=== PATIENT | female | born 1950 | race Caucasian/White ===

== ENCOUNTER → 2020-01-12 09:32 | Outpatient (CLI) | payer MEDICARE, MEDICAID, SELFPAY ==
--- NOTE | ~2020-01-12 | XR_ITS ---
XR knee RT 2V, XR knee LT 2V 01/12/2020 10:44 Indication: Chronic knee pain Procedure: 2 views of each knee Comparison: No prior studies for comparison. Findings: There is mild bilateral osteoarthritis of the knees involving all compartments. Osteopenia. No acute fracture or traumatic malalignment. No significant joint effusion. Impression: 1: Mild bilateral tricompartment osteoarthritis of the knees. Reviewed, dictated and finalized at location A. Impression: 1: Mild bilateral tricompartment osteoarthritis of the knees. Impression: 1: Mild bilateral tricompartment osteoarthritis of the knees.
--- NOTE | ~2020-01-12 | XR_ITS ---
XR lumbar spine 2-3V DATE: 01/12/2020 10:44 INDICATION: Back pain, radiculopathy. TECHNIQUE: Standing AP, lateral, coned lateral lumbosacral views COMPARISON: 08/02/2018 lumbar spine FINDINGS: Again noted are postoperative changes including posterior and interbody fusion at L4-5 and surgical fusion at the right sacroiliac joint. Prominent diffuse osteopenia. There is dextro scoliosis of the lumbar spine. No fracture or spondylolisthesis the left sacroiliac joint is intact. Or bone destruction of the lumb ar spine is evident. The included lower thoracic and lumbar pedicles appear intact. There is extensive calcification of the abdominal aorta, without evidence of aneurysm. IMPRESSION: Posterior and interbody spinal fusion at L5-S1 Surgical fusion at the right sacroiliac joint. Diffuse osteopenia Reviewed, dictated and finalized at location B.
--- NOTE | ~2020-01-12 | XR_ITS ---
XR cervical spine 4-5V DATE: 01/12/2020 10:44 INDICATION: Neck pain TECHNIQUE: Standing Ap, lateral and open mouth, swimmer views COMPARISON: 08/02/2018 cervical spine FINDINGS: There is diffuse osteopenia. There is surgical fusion of the C4-6 vertebral bodies. There is anterior mild subluxation at C6-7. No fracture or dislocation, periosteal reaction or bone destruction. No prevertebral soft tissue swe lling. IMPRESSION: No fracture or dislocation There is mild anterolisthesis at C6-7 Status post surgical fusion at C4-6 Reviewed, dictated and finalized at location B.
== END ==
PROVIDERS: PCP Internal Medicine; Visit Provider Pain Medicine Interventional Pain Medicine
DX: G89.4 Chronic pain syndrome (principal); Z13.89 Encounter for screening for other disorder; Z79.891 Long term (current) use of opiate analgesic; M54.17 Radiculopathy, lumbosacral region; M54.12 Radiculopathy, cervical region; M75.50 Bursitis of unspecified shoulder; S62.102S Fracture of unspecified carpal bone, left wrist, sequela; X58.XXXA Exposure to other specified factors, initial encounter; Z98.1 Arthrodesis status; M85.88 Other specified disorders of bone density and structure, other site
CPT/HCPCS: 72050; 72100; 73560

== ENCOUNTER 2020-10-30 11:04 | Outpatient (CLI) | payer MEDICARE, MEDICAID, SELFPAY ==
--- NOTE | ~2020-10-30 | MR_ITS ---
EXAMINATION: MR lumbar spine wo con EXAM DATE: 10/30/2020 11:50 INDICATION: Low back pain, bilateral leg pain. TECHNIQUE: Multi-sequential, multiplanar MR images of the lumbar spine were obtained without contrast . Sagittal T1, T2, T2 fat saturation images. Axial T2 weighted images. Comparison is made to prior examination from 06/20/2009. FINDINGS: Posterior and interbody fusion L4-5. Mild to moderate disc disease L5-S1 with 2-3 mm retrol isthesis. The vertebral bodies are otherwise aligned. The vertebral body and disc heights are otherwi se well maintained. There are no suspicious marrow signal abnormalities. The conus medullaris termina jasvir at the L1/2 level and has normal signal intensity and morphology. Incidental right renal lesions which are fluid signal intensity, incompletely imaged but likely cysts. Level by level evaluation: T12-L1: Disc does not extend beyond the endplate margin. Facet arthropathy: None. Neural foraminal stenosis: No stenosis. Central canal stenosis: No stenosis. L1-L2: There is a mild diffuse disc bulge. Facet arthropathy: None. Neural foraminal stenosis: No stenosis. Central canal stenosis: No stenosis. L2-L3: There is a mild diffuse disc bulge. Facet arthropathy: Mild. Neural foraminal stenosis: No stenosis. Central canal stenosis: No stenosis. L3-L4: There is a minimal diffuse disc bulge. Facet arthropathy: Mild. Neural foraminal stenosis: No stenosis. Central canal stenosis: No stenosis. L4-L5: This level is fused. Facet arthropathy: Fused. Neural foraminal stenosis: No stenosis. Central canal stenosis: No stenosis. L5-S1: There is a mild to moderate diffuse disc bulge. Facet arthropathy: Mild to moderate. Neural foraminal stenosis: Moderate right, mild left. Central canal stenosis: Mild. Compared to previous examination, L4-5 fusion has been placed. Some progression in L5-S1 spondylosis. IMPRESSION: 1. L5-S1 grade 1 retrolisthesis, moderate right neural foraminal stenosis. 2. Lesser spondylosis above. 3. L4-5 fusion. Reviewed, dictated and finalized at location B. [employer]
== END 2020-10-30 11:05 | disposition home or self-care (01) ==
PROVIDERS: PCP Internal Medicine; Visit Provider Pain Medicine Interventional Pain Medicine
DX: M47.26 Other spondylosis with radiculopathy, lumbar region (principal); Z98.1 Arthrodesis status
CPT/HCPCS: 72148

== ENCOUNTER 2021-03-14 16:09 | Outpatient (CLI) | payer MEDICARE, MEDICAID, SELFPAY ==
--- NOTE | ~2021-03-14 | XR_ITS ---
EXAMINATION: XR lumbar spine min 4V EXAM DATE: 03/14/2021 16:35 INDICATION: Radiculopathy, chronic mid and low back pain. TECHNIQUE: Lumber spine frontal, lateral, bilateral oblique projections. Coned down frontal and lat eral L5-S1 lumbar projections for interpretation. Comparison is made to prior examination from 020. FINDINGS: Vertebral body heights are maintained. There are no acute fractures identified. Post. Inter body fusion L4-5. Surgical devices bridging the right sacroiliac joint. Mild lower thoracic dextrosco liosis. Moderate disc disease at L5-S1 with vacuum disc phenomenon. Moderate mid and lower lumbar fac et arthropathy. L5 laminectomies. Sacrum, sacroiliac joints, sacral arcuate lines are intact. There i s moderate symmetric bilateral hip primary osteoarthritis. Moderate scattered aortic arteriosclerotic disease. IMPRESSION: 1. Moderate lumbar facet arthropathy and L5-S1 disc disease. 2. Surgical changes. Reviewed, dictated and finalized at location A.
== END 2021-03-14 16:10 | disposition home or self-care (01) ==
PROVIDERS: PCP Internal Medicine; Visit Provider Neurological Surgery
DX: M47.26 Other spondylosis with radiculopathy, lumbar region (principal); M96.1 Postlaminectomy syndrome, not elsewhere classified; M51.37 Other intervertebral disc degeneration, lumbosacral region
CPT/HCPCS: 72110

== ENCOUNTER → 2021-03-25 07:53 | Outpatient (CLI) | payer MEDICARE, MEDICAID, SELFPAY ==
[2021-03-25 19:22] LABS: SARS-CoV-2 RNA PCR Negative
== END ==
PROVIDERS: PCP Internal Medicine; Visit Provider Neurological Surgery
DX: M46.1 Sacroiliitis, not elsewhere classified (principal); Z20.822 Contact with and (suspected) exposure to COVID-19
CPT/HCPCS: C9803; U0003; U0005

== ENCOUNTER 2021-03-28 09:34 | Outpatient (CLI) | payer MEDICARE, MEDICAID, SELFPAY ==
[2021-03-22 09:18] VITALS: BMI 34.7
[2021-03-28] VITALS (10 sets, daily range): BP systolic 136–182; BP diastolic 31–77; PULSE 63–73; RESP 14–20; O2SAT 91–100
--- NOTE | ~2021-03-28 | XR_ITS ---
EXAMINATION: XR myelogram spine lumbosacral DATE: 03/28/2021 11:48 INDICATION: Postlaminectomy syndrome TECHNIQUE: Informed consent was obtained from the patient. Risks and benefits including bleeding, i nfection and nerve root injury were discussed with the patient. The patient agreed to proceed. Time out procedure was performed. Mat Cutter radiograph was obtained. An entry site was chosen at the L2-L3 level. A midline interspinous process approach was used. Standard sterile prep was done with Betadi ne. Entry site was infiltrated with 3 cc 1% lidocaine. A 3.5 22G spinal needle was then inserted i nto the spinal canal. Intrathecal position was confirmed by spontaneous reflux of clear colorless CSF fluid. 16 mL Omnipaque 180 were then injected into the thecal sac with intermittent fluoroscopy con firming intrathecal administration. Frontal, lateral and oblique fluoroscopic images were then acquired. The patient was then transferre d to CT scan for spiral CT of the lumbar spine. Following this patient was transferred to recovery f or 4 hours of observation. There are no immediate complications. A total of 15 fluoroscopic images were obtained. Fluoroscopy exposure time was 0.8 minutes. FINDINGS: Real-time fluoroscopy demonstrates the needle at the L2-L3 level. Postoperative change of p rior midline anterior and posterior spinal fusion at L4-L5 with bilateral vertical christiano and pedicle sc rew fixation and interbody bone graft cage. Posterior disc bulges at L1-L2 and L2-L3 resulting in mil d central canal stenosis and smaller disc bulge with minimal central canal stenosis at T12-L1. Partia lly visualized screw fixation across the right sacral iliac joint. IMPRESSION: 1. Successful fluoro-guided lumbar puncture and intrathecal contrast administration for subsequent CT myelogram which will be dictated separately. 2. Disc bulges at T12-L1 through L2-L3 with minimal to mild canal stenosis. 3. Combined noncemented anterior and posterior spinal fusion at L5-S1 and partially visualized screw fixation across the right sacral iliac joint. Reviewed, dictated and finalized at location A. IMPRESSION: 1. Successful fluoro-guided lumbar puncture and intrathecal contrast administra tion for subsequent CT myelogram which will be dictated separately. 2. Disc bulges at T12-L1 through L2-L3 with minimal to mild canal stenosis. 3. Combined noncemented anterior and posterior spinal fusion at L5-S1 and parti ally visualized screw fixation across the right sacral iliac joint.
--- NOTE | ~2021-03-28 | CT_ITS ---
EXAMINATION: CT lumbar spine w con DATE: 03/28/2021 11:42 INDICATION: Postlaminectomy syndrome TECHNIQUE: Computed tomography (CT) of the lumbar spine was performed with 16 mL with 100 mL Omnipaqu e-180 intrathecal contrast but without intravenous contrast. Details of the intrathecal contrast inje ction been dictated separately. The dose-length product was 812.46 mGy-cm. COMPARISON: Lumbar spine MR dated 10/30/2020 FINDINGS: Postoperative change of prior combined instrumented anterior and posterior spinal fusion at L4-L5 wit h bilateral vertical christiano and pedicle screw fixation and interbody bone graft cages. A pair of fixatio n screws are also seen spanning the right sacroiliac joint on the apprentice painter hand topogram. Alignment is normal . Unfused vertebral body heights are normal. No fractures. No pars interarticularis defects. Mild dis c height loss with vacuum phenomena at L5-S1. Remaining unfused disc heights are normal. A couple low -attenuation right renal cysts the largest measuring 3.6 cm. The following disc levels are specifical ly discussed: T11-T12: Disc is minimally bulging. There is mild bilateral facet joint osteoarthritis. There is no n eural foraminal stenosis. There is no central canal stenosis. T12-L1: Disc is minimally bulging. There is mild bilateral facet joint osteoarthritis. There is no ne ural foraminal stenosis. There is no central canal stenosis. L1-L2: Disc is minimally bulging with superimposed small central disc protrusion versus extrusion. Th ere is minimal bilateral facet joint osteoarthritis. There is no neural foraminal stenosis. There is mild central canal stenosis. L2-L3: Disc is minimally bulging with superimposed small central to right paracentral disc protrusion versus extrusion. There is minimal bilateral facet joint osteoarthritis. There is no neural foramina l stenosis. There is mild central canal stenosis. L3-L4: The disc does not extend beyond the endplate margin. There is minimal bilateral facet joint os teoarthritis. There is no neural foraminal stenosis. There is no central canal stenosis. L4-L5: Disc space is fused. There is also fusion across the facet joints with bilateral vertical christiano and pedicle screw fixation. There is no neural foraminal stenosis. There is mild central canal stenos is resulting from mild hypertrophic change along the left facet joint. L5-S1: Disc is mildly bulging. There is mild left and moderate right facet joint osteoarthritis. Ther e is mild to moderate bilateral neural foraminal stenosis. There is no central canal stenosis. IMPRESSION: 1. Mild lumbar spondylosis with combined instrumented anterior and posterior spinal fusion at L4-L5. Reviewed, dictated and finalized at location A. IMPRESSION: 1. Mild lumbar spondylosis with combined instrumented anterior and posterior sp inal fusion at L4-L5.
[2021-03-28 10:28] LABS: Mean Platelet Volume 8.9 fl (7.4-10.4); Platelet Count Result 236 k/mm3 (150-375)
[2021-03-28 10:43] LABS: Prothrombin Time 13.3 Seconds (11.1-14.7)
== END 2021-03-28 13:45 | disposition home or self-care (01) ==
PROVIDERS: Radiology Diagnostic Radiology; PCP Internal Medicine; Visit Provider Neurological Surgery
DX: M96.1 Postlaminectomy syndrome, not elsewhere classified (principal); M47.26 Other spondylosis with radiculopathy, lumbar region; M46.1 Sacroiliitis, not elsewhere classified; Z51.81 Encounter for therapeutic drug level monitoring; Z79.899 Other long term (current) drug therapy
CPT/HCPCS: 36415; 62304; 72132; 85049; 85610; Q9965

== ENCOUNTER 2021-06-22 22:13 | Emergency (ER) | payer MEDICARE, MEDICAID, SELFPAY ==
--- NOTE | ~2021-06-22 | XR_ITS ---
XR tibia fibula LT 2V DATE: 06/22/2021 22:56 INDICATION: Dog injury. Evaluate for retained foreign body TECHNIQUE: AP and lateral views of the lower leg and ankle COMPARISON: None FINDINGS: Diffuse osteopenia. No fracture or dislocation, periosteal reaction or bone destruction of the tibia or fibula. Normal alignment of the knee and ankle joints. No radiopaque soft tissue foreign body. IMPRESSION: No radiopaque soft tissue foreign body Diffuse osteopenia Reviewed, dictated and finalized at location A.
--- NOTE | ~2021-06-22 | XR_ITS ---
XR hand RT 2V DATE: 06/22/2021 22:56 INDICATION: Dog bite. Evaluate for possible foreign body TECHNIQUE: 3 views of right hand COMPARISON: None FINDINGS: Diffuse osteopenia. There is soft tissue swelling of the distal second digit. There is a mildly comminuted fracture of th e base, metaphysis and proximal shaft of the distal phalanx, with minimal displacement or angulation. No radiopaque foreign body is evident. No other fracture or dislocation. IMPRESSION: Comminuted fractures of distal phalanx of second digit Reviewed, dictated and finalized at location A.
[2021-06-22 22:10] VITALS: BP 175/54; PULSE 78; RESP 18; TEMP 37.1; O2SAT 95
--- NOTE | 2021-06-22 22:35 | ED.ANIMALBIT ---
HPI - Animal Bite General Chief Complaint: Animal Bite Stated Complaint: evulsion to finger - dog bites Time Seen by Provider: 06/22/21 22:22 History of Present Illness HPI narrative: Patient presents with a dog bite. Shorts there is a stray dog in her backyard she reached down to touch it and bit her hand. Reports pain to the area is achy, constant, worse with using her hands there is no radiation. Reports she is right-hand dominant. She does not know where the dog came from her who thought belongs to. Related Data Home Medications Medication Instructions Recorded Confirmed albuterol 180 mcg INHALATION TID 03/22/21 03/22/21 amlodipine 10 mg PO DAILY 03/22/21 03/22/21 aspirin 81 mg PO DAILY 03/22/21 03/22/21 bupropion HCl [Wellbutrin] 100 mg PO BID 03/22/21 03/22/21 clopidogrel [Plavix] 75 mg PO DAILY 03/22/21 03/22/21 cyclobenzaprine [Flexeril] 10 mg PO TID 03/22/21 03/22/21 fluoxetine [Prozac] 40 mg PO DAILY 03/22/21 03/22/21 hydrocodone-acetaminophen 1 tablet PO Q6-8H PRN 03/22/21 03/22/21 melatonin 10 mg PO HS 03/22/21 03/22/21 metoprolol tartrate 25 mg PO DAILY 03/22/21 03/22/21 multivitamin 1 tablet PO DAILY 03/22/21 03/22/21 omeprazole 20 mg PO DAILY 03/22/21 03/22/21 pravastatin 40 mg PO HS 03/22/21 03/22/21 vit C,F-Zs-gygdd-lutein-zeaxan 1 tablet PO DAILY 03/22/21 03/22/21 [PreserVision AREDS-2] Allergies Allergy/AdvReac Type Severity Reaction Status Date / Time naproxen Allergy Severe BLISTERS Verified 06/22/21 22:32 celecoxib Allergy Unknown Gastrointestinal Verified 06/22/21 22:32 Upset latex Allergy Unknown Rash Verified 06/22/21 22:32 NSAIDS (Non-Steroidal Allergy Unknown Gastrointestinal Verified 06/22/21 22:32 Anti-Inflamma Upset Penicillins Allergy Unknown Rash Verified 06/22/21 22:32 Sulfa (Sulfonamide Allergy Unknown Redness of Verified 06/22/21 22:32 Antibiotics) Skin Review of Systems Review of Systems: CONSTITUTIONAL: Denies fever, chills, or sweats. EYES: Denies visual changes, redness, or discharge. ENT: Denies rhinorrhea, congestion, sore throat, or otalgia. CARDIOVASCULAR: Denies chest pain, palpitations, or edema. RESPIRATORY: Denies cough or dyspnea. GASTROINTESTINAL: Denies abdominal pain, nausea, vomiting, or diarrhea. GENITOURINARY: Denies dysuria or hematuria. SKIN: Denies rash or itching. MUSCULOSKELETAL: Denies back pain, or myalgia. NEUROLOGIC: Denies headache, numbness, dizziness, or weakness. PSYCHIATRIC: Denies anxiety or depression. All systems reviewed & are unremarkable except as noted in HPI and below PMFSH Family History Family History Father Hypertension Family history of malignant neoplasm of esophagus Mother Hypertension Family history of throat cancer Sibling Family history of diabetes mellitus in first degree relative Other Family history of chronic obstructive pulmonary disease Social History Social History Smoking status: Current every day smoker Alcohol intake: never Exam Narrative: GENERAL: Well-appearing, well-nourished, and in no acute distress. HEAD: Normocephalic, atraumatic. EYES: PERRLA and EOMI. ENT: Nares clear, no rhinorrhea or epistaxis. Mucous membranes moist. NECK: Supple. No masses. No JVD EXTREMITIES: Maceration to the second digit on the right hand distal tip. Sensation intact to light touch is good cap refill. Flexion intact at the DIP joint SKIN: Warm, dry, no rash. NEURO: No focal deficits. Alert and oriented x3. PSYCH: Normal mood and affect. Course Consultations Consultation #1: Case discussed with Dr. Felton who will follow up with patient this week Date: 06/22/21 Time: 23:00 Vital Signs Vital signs: Vital Signs Temperature 37.1 C 06/22/21 22:10 Pulse Rate 78 06/22/21 22:10 Respiratory Rate 18 06/22/21 22:10 Blood Pressure 175/54 H 06/22/21 22:10 Pulse Oximetry 95
[2021-06-22 22:51] VITALS: BP 145/54
[2021-06-22] MEDS: HYDROcodone/acetaminophen (*CRX) 5-325 MG TABLET 1 TAB PO (23:17)
[2021-06-22] MEDS: TETANUS,DIPHTHERIA,AC PERTUSSIS ADULT (0.5 ML) BOOSTRIX IM (23:17)
[2021-06-23 00:32] VITALS: BP 149/70; PULSE 83; RESP 16; O2SAT 96
== END 2021-06-23 00:33 | disposition home or self-care (01) ==
PROVIDERS: Emergency Provider Emergency Medicine; PCP Internal Medicine
DX: S62.630A Displaced fracture of distal phalanx of right index finger, initial encounter for closed fracture (principal); Z23 Encounter for immunization; F17.200 Nicotine dependence, unspecified, uncomplicated; Z79.82 Long term (current) use of aspirin; Z79.02 Long term (current) use of antithrombotics/antiplatelets; M85.841 Other specified disorders of bone density and structure, right hand; M85.862 Other specified disorders of bone density and structure, left lower leg; W54.0XXA Bitten by dog, initial encounter
CPT/HCPCS: 73120; 73590; 90471; 90715; 99284; A9270

== ENCOUNTER 2021-07-29 12:07 | Inpatient (IN) | payer MEDICARE, MEDICAID, SELFPAY ==
[2021-07-29] VITALS (7 sets, daily range): BP systolic 109–149; BP diastolic 53–78; PULSE 64–90; RESP 15–18; TEMP 37.3–37.6; O2SAT 90–98
--- NOTE | ~2021-07-29 | XR_ITS ---
EXAMINATION: XR chest 1V portable EXAM DATE: 07/29/2021 13:27 INDICATION: Chest pain. TECHNIQUE: Portable AP frontal chest x-ray was obtained. Comparison is made to prior examination from 10/02/2018. FINDINGS: There is cardiomegaly. There is aortic arteriosclerosis. No confluent consolidation, pneumo thorax or pleural effusion suspected. There are bony degenerative changes. IMPRESSION: Cardiomegaly Reviewed, dictated and finalized at location B. IMPRESSION: Cardiomegaly
--- NOTE | ~2021-07-29 | CT_ITS ---
EXAMINATION: CTA chest PE protocol EXAM DATE: 07/29/2021 15:25 INDICATION: Shortness of breath . Cough. COVID diagnosed Sunday. TECHNIQUE: Spiral CTA of the chest (pulmonary arteries) was performed with 100 cc Omnipaque 350 intr avenous contrast injection. Images were acquired during the pulmonary arterial phase. Coronal maxi mum intensity projection 3D-reconstructions were created by the technologist on dedicated workstation . Axial, coronal and sagittal reformatted images were reviewed. The dose-length product (DLP) for t his examination was 475.54 mGy-cm. The exposure was tailored according to patient size (auto mA exp osure control), and iterative reconstruction (ASIR) was used as additional dose reduction technique. There is no prior study for comparison. FINDINGS: Pulmonary arteries are well opacified and without intraluminal filling defects. No thora cic aortic dissection. There is mild to moderate emphysema. Some regions of interlobular septal thic kening and groundglass opacity, could be early stages of COVID pneumonia. Other possibilities inclu de influenza, pulmonary edema or hemorrhage. Some chronic processes that can have this appearance inc lude cryptogenic organizing pneumonia, desquamative interstitial pneumonia, nonspecific interstitial pneumonia, drug toxicity, connective tissue disease. There are no pleural or pericardial effusions. Tracheobronchial tree is patent. There is no media stinal, hilar or axillary lymphadenopathy. There is no pneumothorax. Mild cardiomegaly. There is moderate coronary arterial calcification, arterial sclerosis. There is small sliding gastroesophagea l hiatal hernia. Upper abdomen is unremarkable. There is thoracic spondylosis without osteoblastic or osteolytic lesions identified. IMPRESSION: 1. Some scattered regions of groundglass opacity and interlobular septal thickening, could be acute stage COVID pneumonia. NSIP pattern interstitial lung disease, some other possibilities. 2. Mild to moderate emphysema. 3. No pulmonary emboli. 4. Small hiatal hernia. Reviewed, dictated and finalized at location B. IMPRESSION: 1. Some scattered regions of groundglass opacity and interlobular septal thick ening, could be acute stage COVID pneumonia. NSIP pattern interstitial lung dis ease, some other possibilities. 2. Mild to moderate emphysema. 3. No pulmonary emboli. 4. Small hiatal hernia.
--- NOTE | 2021-07-29 12:57 | ED.SOB ---
HPI - SOB/Dyspnea General Chief Complaint: Upper Respiratory Infection Stated Complaint: covid +, sob Time Seen by Provider: 07/29/21 12:35 Source: patient Mode of arrival: ambulatory Limitations: no limitations History of Present Illness HPI Narrative: Patient is a 70-year-old female complaining of shortness of breath, cough, body aches, chills and fever x1 week. Patient states that she was diagnosed with Covid 5 days ago. Patient denies any chest pain, abdominal pain, nausea, vomiting, diarrhea or urinary symptoms. Related Data Home Medications Medication Instructions Recorded Confirmed albuterol 180 mcg INHALATION TID 03/22/21 03/22/21 amlodipine 10 mg PO DAILY 03/22/21 03/22/21 aspirin 81 mg PO DAILY 03/22/21 03/22/21 bupropion HCl [Wellbutrin] 100 mg PO BID 03/22/21 03/22/21 clopidogrel [Plavix] 75 mg PO DAILY 03/22/21 03/22/21 cyclobenzaprine [Flexeril] 10 mg PO TID 03/22/21 03/22/21 fluoxetine [Prozac] 40 mg PO DAILY 03/22/21 03/22/21 hydrocodone-acetaminophen 1 tablet PO Q6-8H PRN 03/22/21 03/22/21 melatonin 10 mg PO HS 03/22/21 03/22/21 metoprolol tartrate 25 mg PO DAILY 03/22/21 03/22/21 multivitamin 1 tablet PO DAILY 03/22/21 03/22/21 omeprazole 20 mg PO DAILY 03/22/21 03/22/21 pravastatin 40 mg PO HS 03/22/21 03/22/21 vit C,G-Mv-fcbnf-lutein-zeaxan 1 tablet PO DAILY 03/22/21 03/22/21 [PreserVision AREDS-2] Allergies Allergy/AdvReac Type Severity Reaction Status Date / Time naproxen Allergy Severe BLISTERS Verified 07/29/21 12:29 celecoxib Allergy Unknown Gastrointestinal Verified 07/29/21 12:29 Upset latex Allergy Unknown Rash Verified 07/29/21 12:29 NSAIDS (Non-Steroidal Allergy Unknown Gastrointestinal Verified 07/29/21 12:29 Anti-Inflamma Upset Penicillins Allergy Unknown Rash Verified 07/29/21 12:29 Sulfa (Sulfonamide Allergy Unknown Redness of Verified 07/29/21 12:29 Antibiotics) Skin Review of Systems Review of Systems: All systems reviewed & are unremarkable except as noted in HPI and below Constitutional: Constitutional: Denies excessive sweating, Denies fatigue, Denies headache(s), Denies lethargy, Denies malaise, Denies weakness and Denies weight loss Eyes: Eyes: Denies blurry vision, Denies change in vision and Denies loss of vision ENT: Denies dizziness, Denies ear discharge, Denies headache(s), Denies lip swelling, Denies epistaxis, Denies nasal congestion, Denies neck pain, Denies throat swelling and Denies tongue swelling Cardiovascular: Cardiovascular: Denies chest pain, Denies chest pain at rest, Denies chest pain with activity, Denies diaphoresis, Denies rapid heart rate, Denies edema, Denies irregular heart rhythm, Denies lightheadedness and Denies palpitations Respiratory: Respiratory: Denies chest congestion and Denies hemoptysis Gastrointestinal: Gastrointestinal: Denies abdominal pain, Denies melena, Denies hematochezia, Denies diarrhea, Denies nausea, Denies vomiting and Denies hematemesis Musculoskeletal: Musculoskeletal: Denies abnormal gait, Denies deformity, Denies joint swelling, Denies limited range of motion, Denies neck pain and Denies numbness Neurologic: Denies Abnormal speech present, Denies abnormal gait, Denies confusion, Denies dizziness, Denies headache(s), Denies focal weakness, Denies loss of vision, Denies numbness, Denies Other visual disturbances, Denies Sensory deficit (Neuro) and Denies weakness Psychiatric: Psychiatric: Denies confusion, Denies depression, Denies auditory hallucinations, Denies homicidal ideation and Denies suicidal ideation Endocrine: Endocrine: Denies cold intolerance, Denies excessive sweating, Denies fatigue, Denies heat intolerance and Denies palpitations Hematologic/Lymphatic: Hematologic/Lymphatic: Denies easy bleeding and Denies easy bruising Allergic/Immunologic: Allergic/Immunologic: Denies lip swelling, Denies throat swelling and Denies tongue swelling [facility] Family History Family History (Reviewed 07/29/21 @ 12:59 by Katina
--- NOTE | 2021-07-29 13:01 | ECG_ITS ---
Measurements Intervals [place] Rate: 64 P: 56 PA: 180 QRS: 34 QRSD: 129 T: 47 QT: 423 QTc: 439 Interpretive Statements SINUS RHYTHM RIGHT BUNDLE BRANCH BLOCK BASELINE ARTIFACT- I, II, III, AVR, AVL, AVF, V5-V6 ABNORMAL ECG Electronically Signed On 07-30-2021 14:07:31 CDT by Yoan Vasquez D.O.
[2021-07-29 13:20] LABS: Carboxyhemoglobin 0.3 % THb (0-2.0); Device ROOM AIR; Fractional Inspired Oxygen 21 %; HCO3 ABG 22.2 mEq/l (22.0-26.0); Methemoglobin ABG 0.1 %THb (0-1.5); Modified Allen's Test Pass; Oxygen Content ABG 15.6 %vol (16.0-22.0); Oxygen Saturation ABG 92.6 % (95.0-100.0); PCO2 ABG 32.2 mmHg (35.0-45.0); PO2 ABG 60.2 mmHg (80.0-100.0); PO2 FiO2 Ratio Arterial Blood 2.87 %; Reduced Hemoglobin 8.6 %THb (0-5.0); Site Drawn LEFT RADIAL; Total Hemoglobin 12.2 g/dL (12.0-18.0); pH ABG 7.456 (7.350-7.450)
[2021-07-29] MEDS: DEXAMETHASONE SOD PHOS INJ 4 MG/ML VIAL 10 MG IV PUSH (13:32)
[2021-07-29 13:43] LABS: Basophils Percent Auto 0.2 % (0.2-1.2); Eosinophils Percent Auto 0.4 % (0-4.4); Hematocrit 34.2 % (37.0-47.0); Hemoglobin 11.4 g/dL (12.0-15.0); Immature Granulocyte Absolute 0.02 K/mm3 (0.00-0.031); Immature Granulocyte Percent A 0.4 % (0-0.5); Lymphocytes Absolute Auto 0.57 K/mm3 (0.9-3.2); Lymphocytes Percent Auto 11.5 % (18.3-44.2); Mean Corpuscular HGB Conc 33.3 g/dl (32-36); Mean Corpuscular Hemoglobin 29.5 pg (26-34); Mean Corpuscular Volume 88.4 fl (80-100); Mean Platelet Volume 9.5 fl (7.4-10.4); Monocytes Absolute Auto 0.3 K/mm3 (0.1-0.6); Monocytes Percent Auto 6.5 % (2.6-8.5); Platelet Count Result 154 k/mm3 (150-375); Red Blood Count 3.87 M/mm3 (4.2-5.4); Red Cell Distribution Width 13.2 % (11.5-14.5); White Blood Count 4.9 K/mm3 (4.5-10.0)
[2021-07-29 13:52] LABS: Lactic Acid Reflex 1.4 mmol/L (0.7-2.1)
[2021-07-29 13:54] LABS: INR 0.9
[2021-07-29 13:55] LABS: Partial Thromboplastin Time 29.2 SECONDS (22.3-36.8)
[2021-07-29 13:59] LABS: Alanine Aminotransferase 54 U/L (4-35); Alkaline Phosphatase 99 U/L (38-126); Anion Gap 10 mmol/L (8-16); Aspartate Amino Transferase 29 U/L (14-36); Bilirubin,Total 0.1 mg/dL (0.2-1.3); Blood Urea Nitrogen 12 mg/dL (7-17); Calcium 8.9 mg/dL (8.4-10.2); Carbon Dioxide 24 mmol/L (22-30); Chloride 100 mmol/L (98-107); Estimated CRCL calculation 68 ml/min; Estimated Glomerular Filt Rate > 60; Glucose 90 mg/dL (65-110); Potassium 3.4 mmol/L (3.4-5.0); Sodium 134 mmol/L (137-145)
[2021-07-29 14:09] LABS: NT Pro B Type Natriuretic Pept 248 pg/mL (5-100)
[2021-07-29 14:28] LABS: Troponin I < 0.012 ng/mL (0.000-0.034)
--- NOTE | 2021-07-29 18:22 | PC.NURSE ---
Pt O2 was 91, Per Dr. Hernandez place pt 2L. Pt is at 100%
--- NOTE | 2021-07-29 21:25 | ADMGEN ---
This patient, Aline Ordaz, was admitted to 3 [facility] Surg Room 301-01. Patient/family oriented to hospital policies and general routines including ID bracelet, bed and alarms, visiting hours, pain management, procedures, bathroom and other care routines, personal items, smoking policy, room service/diet, and visiting hours. Information on how to activate the Rapid Response Team has been discussed. Patient/Family are encouraged to report perceived risks to care and to ask questions if they do not understand what they are told or what they should do.
[2021-07-30] VITALS (8 sets, daily range): BP systolic 106–148; BP diastolic 48–65; PULSE 64–92; RESP 14–22; TEMP 36.4–37.5; O2SAT 96–98
--- NOTE | 2021-07-30 00:10 | PM.IMHP ---
H&P: HPI History of Present Illness Date/Time: 07/29/21 0739 this is a 70-year-old female patient who came to the emergency room due to shortness of breath, body aches, fever and chills. The patient stated that this is been going on for over a week. She was diagnosed with COVID at her urgent care 5 days ago. She stated [facility]. The patient stated that she had been exposed and had been around other relatives who tested positive. The patient stated that she should be getting better by now but instead she got worse. Patient's oxygen level was 90% on room air and 89 when she ambulated. The patient was placed on oxygen at 2 L per nasal cannula started on Decadron. The patient is talking in full sentences and appears to be comfortable. The patient stated that she was fully vaccinated for COVID-19. The patient typically uses an inhaler at home. She stated she does not have any previous lung disease but had been wheezing and was given an inhaler by her primary care doctor. Her H&H was 11.4 in 34.2. ABGs pH 7.456, CO2 32.2, PO2 60.2. Chest x-ray was read as cardiomegaly. Chest CTA was read as the following.. Some scattered regions of groundglass opacity and interlobular septal thickening, could be acute stage COVID pneumonia. NSIP pattern interstitial lung disease, some other possibilities. 2. Mild to moderate emphysema. 3. No pulmonary emboli. 4. Small hiatal hernia. The patient stated that she is a full code but does not want to live in a vegetative state on ventilator. She also stated that she did not want to take remdesivir at this point but will take the Decadron. The patient is being admitted to observation status on the date of service of 07/29/2021 Chief Complaint: Shortness of breath Review of Systems Review of Systems: All systems reviewed & are unremarkable except as noted in HPI and below Constitutional: Constitutional: Reports as per HPI and Reports no additional constitutional complaints Eyes: Eyes: Reports as per HPI and Reports no additional eye complaints ENT: Reports system reviewed and no additional complaints, except as documented and Reports Normal hearing present Cardiovascular: Cardiovascular: Reports no additional cardiovascular complaints Respiratory: Respiratory: Reports no additional respiratory complaints and Reports no additional respiratory complaints Gastrointestinal: Gastrointestinal: Reports as per HPI and Reports no additional gastrointestinal complaints Musculoskeletal: Musculoskeletal: Reports no additional musculoskeletal complaints Integumentary/Breasts: Skin/Breast: Reports system reviewed and no additional complaints, except as docu and Reports as per HPI Neurologic: Reports system reviewed and no additional complaints, except as documented, Reports as per HPI and Reports Normal hearing present Psychiatric: Psychiatric: Reports no additional psychiatric complaints and Reports as per HPI Endocrine: Endocrine: Reports no additional endocrine complaints Hematologic/Lymphatic: Hematologic/Lymphatic: Reports no additional hematologic/lymphatic complaints Allergic/Immunologic: Allergic/Immunologic: Reports no additional allergic/immunologic complaints [facility] Past Medical History Medical History (Updated 07/30/21 @ 00:30 by Tammy Juárez NP) CAD (coronary artery disease) Depression with anxiety History of aortic valve disease History of carotid artery disease History of female genital cancer History of genital prolapse History of mitral valve prolapse in adulthood History of skin cancer HTN (hypertension) with goal to be determined Hyperlipidemia Macular degeneration Surgical History Surgical History (Updated 07/30/21 @ 00:21 by Tammy Juárez NP) H/O repair of rotator cuff Bilateral History of back surgery The cage to the lower back 3 times History of breast biopsy Fibrocystic breast History of carotid endarterectomy On the right History of catarac
[2021-07-30] MEDS: PRAVASTATIN SODIUM 20 MG TABLET 40 MG PO ×2 (01:40→22:11)
[2021-07-30] MEDS: MELATONIN 5 MG TABLET 10 MG PO ×2 (01:41→22:12)
[2021-07-30] MEDS: oxyCODONE/ACETAMINOPHEN (*CRX) 5-325 MG TABLET 1 TABLET PO ×4 (01:41→17:31)
[2021-07-30] MEDS: CYCLOBENZAPRINE HCL 10 MG TABLET PO ×3 (08:50→17:31)
[2021-07-30] MEDS: OPTI-GEN TAB 1 TABLET PO (08:50)
[2021-07-30] MEDS: ENOXAPARIN 40 MG/0.4 ML SYRINGE SUB-Q (08:50)
[2021-07-30] MEDS: PANTOPRAZOLE 40 MG TABLET PO (08:51)
[2021-07-30] MEDS: MULTIVITAMINS THERAPEUTIC TAB (*BKC) 1 TABLET PO (08:51)
[2021-07-30] MEDS: FLUoxetine HCL 20 MG CAPSULE 40 MG PO (08:51)
[2021-07-30] MEDS: CLOPIDOGREL BISULFATE 75 MG TABLET PO (08:51)
[2021-07-30] MEDS: buPROPion HCL 100 MG TABLET PO ×2 (08:51→17:32)
--- NOTE | 2021-07-30 10:20 | PM.IMPN ---
Progress Note: A&P Assessment and Plan (1) Pneumonia due to COVID-19 virus: Code(s): U07.1 - COVID-19; J12.82 - Pneumonia due to coronavirus disease 2019 Status: Acute Assessment and Plan: Patient is currently on oxygen at 2 L per nasal cannula. The patient dropped her oxygen level to 89% when she was up ambulating. I encouraged the patient to self prone as often as possible. She is unable to prone at least lay on her side sensitive her back. Patient has been fully vaccinated. She is agreeable to taking the Decadron but will not take they REMdesivir. Continue with albuterol inhaler (2) Depression with anxiety: Code(s): F41.8 - Other specified anxiety disorders Status: Chronic Assessment and Plan: Continue with Wellbutrin and Prozac (3) Hyperlipidemia: Code(s): E78.5 - Hyperlipidemia, unspecified Status: Chronic Assessment and Plan: Continue with pravastatin (4) CAD (coronary artery disease): Code(s): I25.10 - Atherosclerotic heart disease of [place] coronary artery without angina pectoris Status: Chronic Assessment and Plan: Continue with aspirin and metoprolol. The patient stated that she has some coronary blockages but did not receive a stent. Continue with Plavix (5) Macular degeneration: Code(s): H35.30 - Unspecified macular degeneration Status: Chronic Assessment and Plan: Continue with home medications. She is on PreserVision (6) HTN (hypertension) with goal to be determined: Code(s): I10 - Essential (primary) hypertension Status: Chronic Assessment and Plan: Continue with metoprolol and Norvasc. (7) Acute respiratory failure with hypoxia: Code(s): J96.01 - Acute respiratory failure with hypoxia Status: Acute Additional Plan 07/30/21 COVID + 5 days ago in outpt setting (fully vaccinated) pt now hypoxic start dexamethasone add azithromycin pt declined remdesivir but with the understanding this medicine is most effective early has changed her mind Subjective Date/time seen: 07/30/21 10:20 long discussion regarding remdesivir. It works better if taken early, we do not know if she needs it but we have seen good results in pts it is initiated early for. She understands it has risks all drugs have risks and this is no different but considering she has the vaccine and is still requiring hospitalization it is unclear if she will have a good recovery with or without all available medical therapies; Pt agrees to treatment Exam Narrative: GEN: NAD, AAOx3, cooperative HEENT: NCAT, MMM, EOMI Neck: no JVD Heart: S1S2 RRR Lungs: on NC symmetric rise no use of accessory muscles Abd: soft, NT, ND Ext: moves all, no cyanosis, no clubbing, no edema Neuro: CN intact no focal neurological deficits Psych: mood and affect congruent, judgement intact Objective Data Vital Signs Vital Signs: Vital Signs - 24 hr 07/29/21 12:17 07/29/21 14:00 07/29/21 16:06 Temperature 99.1 F Pulse Rate 64 89 75 Respiratory Rate 18 15 15 Blood Pressure 109/62 135/57 L 136/53 L Pulse Oximetry 92 90 90 07/29/21 18:22 07/29/21 19:26 07/29/21 22:00 Temperature 99.7 F H Pulse Rate 89 89 90 Respiratory Rate 18 18 18 Blood Pressure 136/78 149/71 H 112/58 L Pulse Oximetry 97 97 98 07/29/21 22:12 07/30/21 06:00 07/30/21 08:58 Temperature 99.5 F Pulse Rate 92 64 Respiratory Rate 18 Blood Pressure 106/48 L Pulse Oximetry 91 96 Intake/Output Intake/Output: Intake & Output 07/27/21 07/28/21 07/29/21 07/30/21 23:59 23:59 23:59 23:59 Intake Total 420 Balance 420 Meds/Results Medications: Active Medications Generic Name Dose Route Start Last Admin Trade Name Freq PRN Reason Stop Dose Admin Albuterol 2 puff 07/30/21 08:00 Albuterol Sulfate (*Sp) Aerosol 1 Puff INHALATION TIDRT [facility] Amlodipine Besylate 10 mg 07/30/21 09:00 07/30/21 08:55 Amlodipine Besylate
[2021-07-30] MEDS: AZITHROMYCIN 250 MG TABLET 500 MG PO (11:27)
[2021-07-30] MEDS: ALBUTEROL SULFATE (*SP) AEROSOL 1 PUFF 2 PUFF INHALATION ×2 (13:35)
[2021-07-30 20:19] LABS: INR 0.9; Prothrombin Time 12.5 Seconds (11.1-14.7)
[2021-07-30 20:21] LABS: Alanine Aminotransferase 47 U/L (4-35); Estimated CRCL calculation 80 ml/min; Estimated Glomerular Filt Rate > 60
[2021-07-30] MEDS: ALBUTEROL SULFATE (*SP) INHALER 2 PUFF INHALATION (20:55)
[2021-07-30] MEDS: REMDESIVIR 200 MG/NS 250 ML 200 MG/250 ML BAG 250 MG IVPB (22:07)
[2021-07-30] MEDS: METOPROLOL TARTRATE 25 MG TABLET PO (22:12)
[2021-07-31] VITALS (9 sets, daily range): BP systolic 127–148; BP diastolic 51–67; PULSE 66–90; RESP 12–20; TEMP 36.2–37.3; O2SAT 92–100
[2021-07-31] MEDS: oxyCODONE/ACETAMINOPHEN (*CRX) 5-325 MG TABLET 1 TABLET PO ×6 (00:01→23:21)
[2021-07-31 07:02] LABS: Hematocrit 32.6 % (37.0-47.0); Hemoglobin 10.7 g/dL (12.0-15.0); Immature Granulocyte Absolute 0.04 K/mm3 (0.00-0.031); Immature Granulocyte Percent A 0.6 % (0-0.5); Lymphocytes Percent Auto 9.6 % (18.3-44.2); Mean Corpuscular HGB Conc 32.8 g/dl (32-36); Mean Corpuscular Hemoglobin 28.8 pg (26-34); Mean Corpuscular Volume 87.9 fl (80-100); Mean Platelet Volume 9.6 fl (7.4-10.4); Monocytes Absolute Auto 0.3 K/mm3 (0.1-0.6); Neutrophils Absolute Auto 5.3 K/mm3 (1.3-6.7); Neutrophils Percent Auto 84.8 % (45.5-73.1); Platelet Count Result 169 k/mm3 (150-375); Red Blood Count 3.71 M/mm3 (4.2-5.4); Red Cell Distribution Width 12.9 % (11.5-14.5); White Blood Count 6.2 K/mm3 (4.5-10.0)
[2021-07-31 07:20] LABS: INR 0.9; Prothrombin Time 12.3 Seconds (11.1-14.7)
[2021-07-31 07:27] LABS: Alanine Aminotransferase 40 U/L (4-35); Estimated CRCL calculation 80 ml/min; Estimated Glomerular Filt Rate > 60
--- NOTE | 2021-07-31 07:42 | PM.IMPN ---
Progress Note: A&P Assessment and Plan (1) Pneumonia due to COVID-19 virus: Code(s): U07.1 - COVID-19; J12.82 - Pneumonia due to coronavirus disease 2019 Status: Acute Assessment and Plan: Patient is currently on oxygen at 2 L per nasal cannula. The patient dropped her oxygen level to 89% when she was up ambulating. I encouraged the patient to self prone as often as possible. She is unable to prone at least lay on her side sensitive her back. Patient has been fully vaccinated. She is agreeable to taking the Decadron but will not take they REMdesivir. Continue with albuterol inhaler (2) Depression with anxiety: Code(s): F41.8 - Other specified anxiety disorders Status: Chronic Assessment and Plan: Continue with Wellbutrin and Prozac (3) Hyperlipidemia: Code(s): E78.5 - Hyperlipidemia, unspecified Status: Chronic Assessment and Plan: Continue with pravastatin (4) CAD (coronary artery disease): Code(s): I25.10 - Atherosclerotic heart disease of [place] coronary artery without angina pectoris Status: Chronic Assessment and Plan: Continue with aspirin and metoprolol. The patient stated that she has some coronary blockages but did not receive a stent. Continue with Plavix (5) Macular degeneration: Code(s): H35.30 - Unspecified macular degeneration Status: Chronic Assessment and Plan: Continue with home medications. She is on PreserVision (6) HTN (hypertension) with goal to be determined: Code(s): I10 - Essential (primary) hypertension Status: Chronic Assessment and Plan: Continue with metoprolol and Norvasc. (7) Acute respiratory failure with hypoxia: Code(s): J96.01 - Acute respiratory failure with hypoxia Status: Acute Additional Plan 07/30/21 COVID + 5 days ago in outpt setting (fully vaccinated) pt now hypoxic start dexamethasone add azithromycin pt declined remdesivir but with the understanding this medicine is most effective early has changed her mind 07/31/21 hypokalemia repleted cont dexa, remdesivir, azithro O2 on 2L comfortable cont vits and Zn cont home meds anticipate LOS 3 more days to complete Remdesivir therapy am labs ordered Subjective Date/time seen: 07/31/21 07:42 pt doing ok complains of abd pain associated w forceful coughing spells, also reports tremor and feeling anxious associated w steroids therapy. Exam Narrative: GEN: NAD, AAOx3, cooperative HEENT: NCAT, MMM, EOMI Neck: no JVD Heart: S1S2 RRR Lungs: on NC symmetric rise no use of accessory muscles Abd: soft, NT, ND Ext: moves all, no cyanosis, no clubbing, no edema Neuro: CN intact no focal neurological deficits mild tremor Psych: mood and affect congruent, judgement intact mildly anxious Objective Data Vital Signs Vital Signs: Vital Signs - 24 hr 07/30/21 08:00 07/30/21 08:58 07/30/21 11:57 Temperature 98.2 F Pulse Rate 64 64 82 Respiratory Rate 18 14 Blood Pressure 106/56 L 133/65 Pulse Oximetry 96 98 07/30/21 14:46 07/30/21 20:00 07/30/21 21:00 Temperature 98.2 F 97.6 F Pulse Rate 82 80 88 Respiratory Rate 14 20 22 H Blood Pressure 133/65 148/55 H Pulse Oximetry 98 96 07/30/21 22:12 07/31/21 00:00 07/31/21 04:00 Temperature 97.6 F 99.1 F Pulse Rate 86 80 72 Respiratory Rate 20 20 Blood Pressure 146/51 H 139/60 Pulse Oximetry 96 100 Intake/Output Intake/Output: Intake & Output 07/28/21 07/29/21 07/30/21 07/31/21 23:59 23:59 23:59 23:59 Intake Total 1690 400 Balance 1690 400 Meds/Results Medications: Active Medications Generic Name Dose Route Start Last Admin Trade Name A[place] PRN Reason Stop Dose Admin Albuterol 2 puff 07/30/21 20:00 07/30/21 20:55 Albuterol Sulfate (*Sp) Inhaler INHALATION 2 puff TIDRT LUANNE Administration Amlodipine Besylate 10 mg 07/30/21 09:00 07/30/21 08:55 Amlodipine Besylate 5 Mg Tablet PO Not G
[2021-07-31 07:44] LABS: Alanine Aminotransferase 41 U/L (4-35); Albumin Level 3.8 g/dL (3.5-5.1); Alkaline Phosphatase 85 U/L (38-126); Anion Gap 10 mmol/L (8-16); Aspartate Amino Transferase 28 U/L (14-36); Bilirubin,Total 0.3 mg/dL (0.2-1.3); Blood Urea Nitrogen 10 mg/dL (7-17); CRP 2.6 mg/dL (<1.0); Carbon Dioxide 29 mmol/L (22-30); Chloride 96 mmol/L (98-107); Estimated CRCL calculation 80 ml/min; Estimated Glomerular Filt Rate > 60; Glucose 107 mg/dL (65-110); Lactate Dehydrogenase 509 U/L (313-618); Magnesium 1.5 mg/dL (1.6-2.3); Sodium 135 mmol/L (137-145)
[2021-07-31 07:46] LABS: Lactic Acid Reflex 1.8 mmol/L (0.7-2.1)
[2021-07-31] MEDS: ALBUTEROL SULFATE (*SP) INHALER 2 PUFF INHALATION ×3 (08:32→21:30)
[2021-07-31 08:46] LABS: Thyroid Stimulating Hormone Reflex 0.189 uIU/mL (0.465-4.68)
[2021-07-31] MEDS: ENOXAPARIN 40 MG/0.4 ML SYRINGE SUB-Q (09:06)
[2021-07-31] MEDS: PANTOPRAZOLE 40 MG TABLET PO (09:07)
[2021-07-31] MEDS: buPROPion HCL 100 MG TABLET PO ×2 (09:07→21:42)
[2021-07-31] MEDS: amLODIPine BESYLATE 5 MG TABLET 10 MG PO (09:07)
[2021-07-31] MEDS: CYCLOBENZAPRINE HCL 10 MG TABLET PO ×3 (09:07→17:45)
[2021-07-31] MEDS: FLUoxetine HCL 20 MG CAPSULE 40 MG PO (09:07)
[2021-07-31] MEDS: OPTI-GEN TAB 1 TABLET PO (09:07)
[2021-07-31] MEDS: MULTIVITAMINS THERAPEUTIC TAB (*BKC) 1 TABLET PO (09:07)
[2021-07-31] MEDS: METOPROLOL TARTRATE 25 MG TABLET PO ×2 (09:08→21:41)
[2021-07-31] MEDS: ZINC SULFATE 220 MG CAPSULE PO ×2 (09:08→21:41)
[2021-07-31] MEDS: CHOLECALCIFEROL 1,000 UNITS TABLET 1000 UNITS PO (09:08)
[2021-07-31] MEDS: CLOPIDOGREL BISULFATE 75 MG TABLET PO (09:08)
[2021-07-31] MEDS: AZITHROMYCIN 250 MG TABLET 500 MG PO (09:08)
[2021-07-31] MEDS: ASCORBIC ACID 500 MG TABLET 1000 MG PO ×2 (09:09→21:41)
[2021-07-31] MEDS: POTASSIUM CHLORIDE 20 MEQ TABLET 40 MEQ PO (09:10)
[2021-07-31] MEDS: MAGNESIUM SULF 2 GM/WATER 50ML 2 GM/50 ML BAG IVPB (09:11)
[2021-07-31 10:27] LABS: Total Triiodothyronine (T3) 0.77 NG/ML (0.97-1.69)
--- NOTE | 2021-07-31 16:46 | PCRCNOTE ---
Window of time for administration has passed. See next scheduled administration.
[2021-07-31] MEDS: guaiFENesin/CODEINE (*CRX) 200/20 MG 10 ML SYRUP PO (17:46)
[2021-07-31] MEDS: MELATONIN 5 MG TABLET 10 MG PO (21:41)
[2021-07-31] MEDS: POTASSIUM CHLORIDE 10 MEQ TABLET 30 MEQ PO (21:43)
[2021-07-31] MEDS: REMDESIVIR 100 MG/NS 250 ML 100 MG/250 ML BAG 250 MG IVPB (21:43)
[2021-07-31] MEDS: PRAVASTATIN SODIUM 20 MG TABLET 40 MG PO (21:43)
[2021-08-01] VITALS (9 sets, daily range): BP systolic 129–183; BP diastolic 50–62; PULSE 66–77; RESP 18–20; TEMP 35.8–36.2; O2SAT 92–95
[2021-08-01 06:38] LABS: Hematocrit 32.8 % (37.0-47.0); Hemoglobin 10.8 g/dL (12.0-15.0); Immature Granulocyte Absolute 0.07 K/mm3 (0.00-0.031); Immature Granulocyte Percent A 1.7 % (0-0.5); Lymphocytes Absolute Auto 0.52 K/mm3 (0.9-3.2); Lymphocytes Percent Auto 12.5 % (18.3-44.2); Mean Corpuscular HGB Conc 32.9 g/dl (32-36); Mean Corpuscular Hemoglobin 29.6 pg (26-34); Mean Corpuscular Volume 89.9 fl (80-100); Mean Platelet Volume 9.8 fl (7.4-10.4); Monocytes Absolute Auto 0.5 K/mm3 (0.1-0.6); Monocytes Percent Auto 11.1 % (2.6-8.5); Neutrophils Absolute Auto 3.1 K/mm3 (1.3-6.7); Neutrophils Percent Auto 74.7 % (45.5-73.1); Platelet Count Result 168 k/mm3 (150-375); Red Blood Count 3.65 M/mm3 (4.2-5.4); White Blood Count 4.2 K/mm3 (4.5-10.0)
[2021-08-01 06:48] LABS: INR 1.1; Prothrombin Time 13.7 Seconds (11.1-14.7)
[2021-08-01 06:51] LABS: D Dimer 0.75 ug/mL (<0.48)
[2021-08-01 07:05] LABS: Alanine Aminotransferase 40 U/L (4-35); Albumin Level 3.6 g/dL (3.5-5.1); Alkaline Phosphatase 89 U/L (38-126); Anion Gap 7 mmol/L (8-16); Aspartate Amino Transferase 25 U/L (14-36); Bilirubin,Total 0.3 mg/dL (0.2-1.3); Blood Urea Nitrogen 11 mg/dL (7-17); CRP 4.1 mg/dL (<1.0); Calcium 8.6 mg/dL (8.4-10.2); Carbon Dioxide 28 mmol/L (22-30); Chloride 100 mmol/L (98-107); Estimated CRCL calculation 97 ml/min; Estimated Glomerular Filt Rate > 60; Glucose 118 mg/dL (65-110); Magnesium 1.8 mg/dL (1.6-2.3); Potassium 3.5 mmol/L (3.4-5.0); Sodium 135 mmol/L (137-145)
[2021-08-01] MEDS: oxyCODONE/ACETAMINOPHEN (*CRX) 5-325 MG TABLET 1 TABLET PO ×4 (07:32→21:21)
[2021-08-01] MEDS: FLUoxetine HCL 20 MG CAPSULE 40 MG PO (10:07)
[2021-08-01] MEDS: ENOXAPARIN 40 MG/0.4 ML SYRINGE SUB-Q (10:07)
[2021-08-01] MEDS: CYCLOBENZAPRINE HCL 10 MG TABLET PO ×3 (10:07→16:36)
[2021-08-01] MEDS: AZITHROMYCIN 250 MG TABLET 500 MG PO (10:08)
[2021-08-01] MEDS: amLODIPine BESYLATE 5 MG TABLET 10 MG PO (10:08)
[2021-08-01] MEDS: ASCORBIC ACID 500 MG TABLET 1000 MG PO ×2 (10:09→16:37)
[2021-08-01] MEDS: CLOPIDOGREL BISULFATE 75 MG TABLET PO (10:09)
[2021-08-01] MEDS: MULTIVITAMINS THERAPEUTIC TAB (*BKC) 1 TABLET PO (10:09)
[2021-08-01] MEDS: ZINC SULFATE 220 MG CAPSULE PO ×2 (10:10→16:37)
[2021-08-01] MEDS: CHOLECALCIFEROL 1,000 UNITS TABLET 1000 UNITS PO (10:10)
[2021-08-01] MEDS: PANTOPRAZOLE 40 MG TABLET PO (10:10)
[2021-08-01] MEDS: OPTI-GEN TAB 1 TABLET PO (10:10)
[2021-08-01] MEDS: METOPROLOL TARTRATE 25 MG TABLET PO ×2 (10:12→21:21)
[2021-08-01] MEDS: buPROPion HCL 100 MG TABLET PO ×2 (12:37→16:36)
--- NOTE | 2021-08-01 13:25 | PCRCNOTE ---
Window of time for administration has passed. See next scheduled administration.
[2021-08-01] MEDS: ALBUTEROL SULFATE (*SP) INHALER 2 PUFF INHALATION ×2 (14:31→20:06)
--- NOTE | 2021-08-01 14:42 | PM.IMPN ---
Progress Note: A&P Assessment and Plan (1) Pneumonia due to COVID-19 virus: Code(s): U07.1 - COVID-19; J12.82 - Pneumonia due to coronavirus disease 2019 Status: Acute Assessment and Plan: Patient is currently on oxygen at 2 L per nasal cannula. Stable on current treatments, oxygen, steroids and remdesivir and Azithromycin. Encouraged prone positions. (2) Depression with anxiety: Code(s): F41.8 - Other specified anxiety disorders Status: Chronic Assessment and Plan: Continue with Wellbutrin and Prozac (3) Hyperlipidemia: Code(s): E78.5 - Hyperlipidemia, unspecified Status: Chronic Assessment and Plan: Continue with pravastatin (4) CAD (coronary artery disease): Code(s): I25.10 - Atherosclerotic heart disease of [place] coronary artery without angina pectoris Status: Chronic Assessment and Plan: Continue with aspirin and metoprolol. Continue with Plavix (5) Macular degeneration: Code(s): H35.30 - Unspecified macular degeneration Status: Chronic Assessment and Plan: Continue with home medications. She is on PreserVision (6) HTN (hypertension) with goal to be determined: Code(s): I10 - Essential (primary) hypertension Status: Chronic Assessment and Plan: Continue with metoprolol and Norvasc. (7) Acute respiratory failure with hypoxia: Code(s): J96.01 - Acute respiratory failure with hypoxia Status: Acute Assessment and Plan: on 2 liters currently. Subjective Date/time seen: 08/01/21 14:42 Interval history: 70-year-old female patient who came to the emergency room due to shortness of breath, body aches, fever and chills. Pt is on steroids and remdesivir, doing well no specific complaints, currently on 2 liters of oxygen. Pt states she was fully vaccinated for COVID. Pt thinks she got it from her family. Review of Systems Review of Systems: All systems reviewed & are unremarkable except as noted in HPI and below Exam Const: General: cooperative and healthy appearing; No in distress Nutritional Appearance: overweight Orientation/consciousness: oriented to person HENMT: Head: normal to inspection Resp: Effort & Inspection: no respiratory distress GI: Inspection: normal to inspection GI Palp: No abdominal tenderness, No Guarding due to palpation present (GI) and No Hepatomegaly present Auscultation: normal bowel sounds Neuro: General: oriented to person Objective Data Vital Signs Vital Signs: Vital Signs - 24 hr 07/31/21 17:30 07/31/21 20:00 08/01/21 00:00 Temperature 36.6 C 36.2 C L 36.1 C L Pulse Rate 72 66 69 Respiratory Rate 14 20 18 Blood Pressure 130/67 144/53 H 141/50 H Pulse Oximetry 92 94 93 08/01/21 04:00 08/01/21 08:00 08/01/21 10:12 Temperature 36.2 C L 35.8 C L Pulse Rate 70 70 66 Respiratory Rate 20 20 Blood Pressure 147/60 H 183/54 H Pulse Oximetry 95 95 08/01/21 12:00 08/01/21 14:36 Temperature 35.8 C L Pulse Rate 66 Respiratory Rate 18 Blood Pressure 153/55 H Pulse Oximetry 92 92 Intake/Output Intake/Output: Intake & Output 07/29/21 07/30/21 07/31/21 08/01/21 23:59 23:59 23:59 23:59 Intake Total 1690 2100 620 Balance 1690 2100 620 Meds/Results Medications: Active Medications Generic Name Dose Route Start Last Admin Trade Name Freq PRN Reason Stop Dose Admin Albuterol 2 puff 07/30/21 20:00 08/01/21 14:31 Albuterol Sulfate (*Sp) Inhaler INHALATION 2 puff TIDRT LUANNE Administration Amlodipine Besylate 10 mg 07/30/21 09:00 08/01/21 10:08 Amlodipine Besylate 5 Mg Tablet PO 10 mg DAILY LUANNE Administration Ascorbic Acid 1,000 mg 07/31/21 09:00 08/01/21 10:09 Ascorbic Acid 500 Mg Tablet PO 1,000 mg BID LUANNE Administration Azithromycin 500 mg 07/30/21 10:40 08/01/21 10:08 Azithromycin 250 Mg Tablet PO 500 mg DAILY LUANNE Administration Bupropion HCl 100 mg 07/30/21 09:00
[2021-08-01] MEDS: REMDESIVIR 100 MG/NS 250 ML 100 MG/250 ML BAG 250 MG IVPB (21:21)
[2021-08-01] MEDS: MELATONIN 5 MG TABLET 10 MG PO (21:21)
[2021-08-01] MEDS: PRAVASTATIN SODIUM 20 MG TABLET 40 MG PO (21:22)
[2021-08-01] MEDS: guaiFENesin/CODEINE (*CRX) 200/20 MG 10 ML SYRUP PO (23:13)
[2021-08-02] VITALS (11 sets, daily range): BP systolic 114–149; BP diastolic 46–78; PULSE 63–87; RESP 14–20; TEMP 36–36.9; O2SAT 90–97
[2021-08-02 06:49] LABS: Alanine Aminotransferase 37 U/L (4-35); Estimated CRCL calculation 97 ml/min; Estimated Glomerular Filt Rate > 60
[2021-08-02 07:04] LABS: INR 1.1; Prothrombin Time 13.7 Seconds (11.1-14.7)
[2021-08-02] MEDS: ALBUTEROL SULFATE (*SP) INHALER 2 PUFF INHALATION ×3 (08:06→21:02)
[2021-08-02] MEDS: FLUoxetine HCL 20 MG CAPSULE 40 MG PO (08:20)
[2021-08-02] MEDS: AZITHROMYCIN 250 MG TABLET 500 MG PO (08:21)
[2021-08-02] MEDS: CHOLECALCIFEROL 1,000 UNITS TABLET 1000 UNITS PO (08:21)
[2021-08-02] MEDS: buPROPion HCL 100 MG TABLET PO ×2 (08:21→18:04)
[2021-08-02] MEDS: amLODIPine BESYLATE 5 MG TABLET 10 MG PO (08:21)
[2021-08-02] MEDS: PANTOPRAZOLE 40 MG TABLET PO (08:21)
[2021-08-02] MEDS: ZINC SULFATE 220 MG CAPSULE PO ×2 (08:21→18:05)
[2021-08-02] MEDS: MULTIVITAMINS THERAPEUTIC TAB (*BKC) 1 TABLET PO (08:21)
[2021-08-02] MEDS: ENOXAPARIN 40 MG/0.4 ML SYRINGE SUB-Q ×3 (08:21→20:48)
[2021-08-02] MEDS: CYCLOBENZAPRINE HCL 10 MG TABLET PO ×3 (08:21→18:03)
[2021-08-02] MEDS: ASCORBIC ACID 500 MG TABLET 1000 MG PO ×2 (08:21→18:05)
[2021-08-02] MEDS: OPTI-GEN TAB 1 TABLET PO (08:21)
[2021-08-02] MEDS: CLOPIDOGREL BISULFATE 75 MG TABLET PO (08:21)
[2021-08-02] MEDS: METOPROLOL TARTRATE 25 MG TABLET PO ×2 (08:22→20:48)
[2021-08-02] MEDS: oxyCODONE/ACETAMINOPHEN (*CRX) 5-325 MG TABLET 1 TABLET PO ×3 (12:17→22:04)
--- NOTE | 2021-08-02 12:42 | PM.IMPN ---
Progress Note: A&P Assessment and Plan (1) Pneumonia due to COVID-19 virus: Code(s): U07.1 - COVID-19; J12.82 - Pneumonia due to coronavirus disease 2019 Status: Acute Assessment and Plan: Patient is currently on oxygen at 2 L per nasal cannula. Stable on current treatments, oxygen, steroids and remdesivir and Azithromycin. Encouraged prone positions. (2) Depression with anxiety: Code(s): F41.8 - Other specified anxiety disorders Status: Chronic Assessment and Plan: Continue with Wellbutrin and Prozac (3) Hyperlipidemia: Code(s): E78.5 - Hyperlipidemia, unspecified Status: Chronic Assessment and Plan: Continue with pravastatin (4) CAD (coronary artery disease): Code(s): I25.10 - Atherosclerotic heart disease of [place] coronary artery without angina pectoris Status: Chronic Assessment and Plan: Continue with aspirin and metoprolol. Continue with Plavix (5) Macular degeneration: Code(s): H35.30 - Unspecified macular degeneration Status: Chronic Assessment and Plan: Continue with home medications. She is on PreserVision (6) HTN (hypertension) with goal to be determined: Code(s): I10 - Essential (primary) hypertension Status: Chronic Assessment and Plan: Continue with metoprolol and Norvasc. (7) Acute respiratory failure with hypoxia: Code(s): J96.01 - Acute respiratory failure with hypoxia Status: Acute Assessment and Plan: on 2 liters currently. Additional Plan 07/30/21 COVID + 5 days ago in outpt setting (fully vaccinated) pt now hypoxic start dexamethasone add azithromycin pt declined remdesivir but with the understanding this medicine is most effective early has changed her mind 07/31/21 hypokalemia repleted cont dexa, remdesivir, azithro O2 on 2L comfortable cont vits and Zn cont home meds anticipate LOS 3 more days to complete Remdesivir therapy am labs ordered 08/02 patient was diagnosed with COVID-19 on 07/24 and being treated with dexamethasone and remdesivir, patient is doing better on 2 L of oxygen, states feeling much better denies any cough or shortness of breath fever or chills, will continue to monitor reassess and plan tomorrow Subjective Date/time seen: 08/02/21 12:42 Interval history: 70-year-old female patient who came to the emergency room due to shortness of breath, body aches, fever and chills. Pt is on steroids and remdesivir, doing well no specific complaints, currently on 2 liters of oxygen. Pt states she was fully vaccinated for COVID. Pt thinks she got it from her family. 08/02 patient was diagnosed with COVID-19 on 07/24 and being treated with dexamethasone and remdesivir, patient is doing better on 2 L of oxygen, states feeling much better denies any cough or shortness of breath fever or chills, will continue to monitor reassess and plan tomorrow Review of Systems Review of Systems: All systems reviewed & are unremarkable except as noted in HPI and below Exam Narrative: Patient is comfortable, NAD HEENT: eyes are clear and none icteric LUNGS: normal respiratory effort ABD: distended Lower extremities: no edema SKIN: nonjaundiced Neuro: grossly intact normal speech. Objective Data Vital Signs Vital Signs: Vital Signs - 24 hr 08/01/21 14:36 08/01/21 16:00 08/01/21 20:00 Temperature 96.9 F L 96.9 F L Pulse Rate 77 76 Respiratory Rate 18 20 Blood Pressure 143/62 H 129/57 L Pulse Oximetry 92 92 92 08/01/21 20:11 08/02/21 00:00 08/02/21 04:00 Temperature 96.8 F L 98.4 F Pulse Rate 71 80 78 Respiratory Rate 20 20 Blood Pressure 128/46 L 139/78 Pulse Oximetry 93 90 97 08/02/21 07:55 08/02/21 08:00 08/02/21 08:22 Temperature 98.3 F Pulse Rate 70 77 87 Respiratory Rate 18 14 Blood Pressure 149/63 H Pulse Oximetry 92 08/02/21 12:00 Temperature 98.2 F Pulse Rate 63 Respiratory Rate 15 Blood Pressure 138/6
[2021-08-02] MEDS: PRAVASTATIN SODIUM 20 MG TABLET 40 MG PO (20:48)
[2021-08-02] MEDS: MELATONIN 5 MG TABLET 10 MG PO (20:48)
[2021-08-02] MEDS: REMDESIVIR 100 MG/NS 250 ML 100 MG/250 ML BAG 250 MG IVPB (20:49)
[2021-08-02] MEDS: guaiFENesin/CODEINE (*CRX) 200/20 MG 10 ML SYRUP PO (22:04)
[2021-08-03] VITALS (10 sets, daily range): BP systolic 121–174; BP diastolic 57–62; PULSE 69–89; RESP 16–18; TEMP 36.6–37.2; O2SAT 86–94
[2021-08-03 06:55] LABS: INR 1.1; Prothrombin Time 13.7 Seconds (11.1-14.7)
[2021-08-03 07:02] LABS: Alanine Aminotransferase 36 U/L (4-35); Estimated CRCL calculation 80 ml/min; Estimated Glomerular Filt Rate > 60
[2021-08-03] MEDS: ALBUTEROL SULFATE (*SP) INHALER 2 PUFF INHALATION ×2 (09:00→13:44)
[2021-08-03] MEDS: oxyCODONE/ACETAMINOPHEN (*CRX) 5-325 MG TABLET 1 TABLET PO (09:22)
[2021-08-03] MEDS: ZINC SULFATE 220 MG CAPSULE PO (09:23)
[2021-08-03] MEDS: ASCORBIC ACID 500 MG TABLET 1000 MG PO (09:23)
[2021-08-03] MEDS: amLODIPine BESYLATE 5 MG TABLET 10 MG PO (09:23)
[2021-08-03] MEDS: PANTOPRAZOLE 40 MG TABLET PO (09:23)
[2021-08-03] MEDS: METOPROLOL TARTRATE 25 MG TABLET PO (09:23)
[2021-08-03] MEDS: MULTIVITAMINS THERAPEUTIC TAB (*BKC) 1 TABLET PO (09:23)
[2021-08-03] MEDS: CYCLOBENZAPRINE HCL 10 MG TABLET PO (09:24)
[2021-08-03] MEDS: CHOLECALCIFEROL 1,000 UNITS TABLET 1000 UNITS PO (09:24)
[2021-08-03] MEDS: FLUoxetine HCL 20 MG CAPSULE 40 MG PO (09:24)
[2021-08-03] MEDS: CLOPIDOGREL BISULFATE 75 MG TABLET PO (09:24)
[2021-08-03] MEDS: AZITHROMYCIN 250 MG TABLET 500 MG PO (09:24)
[2021-08-03] MEDS: ENOXAPARIN 40 MG/0.4 ML SYRINGE SUB-Q (09:25)
[2021-08-03] MEDS: buPROPion HCL 100 MG TABLET PO (09:25)
[2021-08-03] MEDS: OPTI-GEN TAB 1 TABLET PO (09:25)
--- NOTE | 2021-08-03 10:55 | HOMEO2EVAL ---
Evaluation was performed at [facility] Home Oxygen Evaluation RC: Home Oxygen (O2) Evaluation Start: 08/03/21 07:34 Freq: ONCE Status: Active Protocol: RPE Activity Type Activity Date Activity User E-Sign Co-Sign Detail Recorded Client Recorded Date Recorded By Document 08/03/21 10:00 DJO [email or web address] 08/03/21 10:55 DJO Document 08/03/21 10:05 [email or web address] [email or web address] 08/03/21 10:55 DJO Document 08/03/21 10:10 [email or web address] [email or web address] 08/03/21 10:55 DJO Document 08/03/21 10:15 [email or web address] [email or web address] 08/03/21 10:55 DJO Document 08/03/21 10:25 [email or web address] [email or web address] 08/03/21 10:55 DJO 08/03/21 08/03/21 08/03/21 10:00 10:05 10:10 Home O2 Evaluation Test Phase Resting Resting Resting Oxygen Delivery Room Air Nasal Cannula Nasal Cannula Oxygen Flow Rate (L/min) 1 2 Pulse Oximetry (90-100 %) 86 L 88 L 91 Pulse Rate (60-100 beats/min) 74 72 71 Activity Tolerance Treatment Charges O2 Evaluation - Inpatient 08/03/21 08/03/21 10:15 10:25 Home O2 Evaluation Test Phase Exercise Resting Oxygen Delivery Nasal Cannula Nasal Cannula Oxygen Flow Rate (L/min) 2 2 Pulse Oximetry (90-100 %) 91 91 Pulse Rate (60-100 beats/min) 89 73 Activity Tolerance Good Treatment Charges
--- NOTE | 2021-08-03 10:55 | PCRCNOTE ---
HOME O2 EVAL COMPLETE, 2L AT REST AND WITH ACTIVITY. SET UP WITH [facility]. PHONE NUMBER [phone]. TANK HAS BEEN DELIVERED TO PT'S ROOM FOR DISCHARGE.
--- NOTE | 2021-08-03 12:19 | PM.DS ---
DS: Admitting Diagnosis Discharge Date 08/03/2021 Admitting Diagnosis Chief Complaint: Shortness of breath DS: Discharge Diagnosis Discharge Diagnosis (1) Pneumonia due to COVID-19 virus: Code(s): U07.1 - COVID-19; J12.82 - Pneumonia due to coronavirus disease 2019 Status: Acute Assessment and Plan: Patient is currently on oxygen at 2 L per nasal cannula. Stable on current treatments, oxygen, steroids and remdesivir and Azithromycin. Encouraged prone positions. (2) Depression with anxiety: Code(s): F41.8 - Other specified anxiety disorders Status: Chronic Assessment and Plan: Continue with Wellbutrin and Prozac (3) Hyperlipidemia: Code(s): E78.5 - Hyperlipidemia, unspecified Status: Chronic Assessment and Plan: Continue with pravastatin (4) CAD (coronary artery disease): Code(s): I25.10 - Atherosclerotic heart disease of [place] coronary artery without angina pectoris Status: Chronic Assessment and Plan: Continue with aspirin and metoprolol. Continue with Plavix (5) Macular degeneration: Code(s): H35.30 - Unspecified macular degeneration Status: Chronic Assessment and Plan: Continue with home medications. She is on PreserVision (6) HTN (hypertension) with goal to be determined: Code(s): I10 - Essential (primary) hypertension Status: Chronic Assessment and Plan: Continue with metoprolol and Norvasc. (7) Acute respiratory failure with hypoxia: Code(s): J96.01 - Acute respiratory failure with hypoxia Status: Acute Assessment and Plan: on 2 liters currently. DS: Summary Hospital Course Reason for hospitalization: this is a 70-year-old female patient who came to the emergency room due to shortness of breath, body aches, fever and chills. The patient stated that this is been going on for over a week. She was diagnosed with COVID at her urgent care 5 days ago. She stated it was [facility]. The patient stated that she had been exposed and had been around other relatives who tested positive. The patient stated that she should be getting better by now but instead she got worse. Patient's oxygen level was 90% on room air and 89 when she ambulated. The patient was placed on oxygen at 2 L per nasal cannula started on Decadron. The patient is talking in full sentences and appears to be comfortable. The patient stated that she was fully vaccinated for COVID-19. The patient typically uses an inhaler at home. She stated she does not have any previous lung disease but had been wheezing and was given an inhaler by her primary care doctor. Her H&H was 11.4 in 34.2. ABGs pH 7.456, CO2 32.2, PO2 60.2. Chest x-ray was read as cardiomegaly. Chest CTA was read as the following.. Some scattered regions of groundglass opacity and interlobular septal thickening, could be acute stage COVID pneumonia. NSIP pattern interstitial lung disease, some other possibilities. 2. Mild to moderate emphysema. 3. No pulmonary emboli. 4. Small hiatal hernia. The patient stated that she is a full code but does not want to live in a vegetative state on ventilator. She also stated that she did not want to take remdesivir at this point but will take the Decadron. The patient is being admitted to observation status on the date of service of 07/29/2021 Chief Complaint: Shortness of breath Hospital Course: 07/30/21 COVID + 5 days ago in outpt setting (fully vaccinated) pt now hypoxic start dexamethasone add azithromycin pt declined remdesivir but with the understanding this medicine is most effective early has changed her mind 07/31/21 hypokalemia repleted cont dexa, remdesivir, azithro O2 on 2L comfortable cont vits and Zn cont home meds anticipate LOS 3 more days to complete Remdesivir therapy am labs ordered 08/02 patient was diagnosed with COVID-19 on 07/24 and being treated with dexamethasone and remdesivir,
== END 2021-08-03 15:50 | disposition home or self-care (01) | DRG 177 ==
LOC: ANHED 19:04 → ANH3MEDSUR 19:54
PROVIDERS: Nurse Practitioner; Admitting Provider Hospitalist; Emergency Provider Emergency Medicine; PCP Internal Medicine; Visit Provider Family Medicine
DX: U07.1 COVID-19 (principal); Z79.82 Long term (current) use of aspirin; Z79.899 Other long term (current) drug therapy; Z87.891 Personal history of nicotine dependence; Z88.0 Allergy status to penicillin; Z88.2 Allergy status to sulfonamides; Z88.8 Allergy status to other drugs, medicaments and biological substances; Z98.49 Cataract extraction status, unspecified eye; J12.82 Pneumonia due to coronavirus disease 2019; J96.01 Acute respiratory failure with hypoxia; F41.8 Other specified anxiety disorders; E78.5 Hyperlipidemia, unspecified; I25.10 Atherosclerotic heart disease of native coronary artery without angina pectoris; I10 Essential (primary) hypertension; H35.30 Unspecified macular degeneration
CPT/HCPCS: 36415; 36600; 71045; 71275; 80053; 82375; 82565; 82728; 82805; 83050; 83605; 83615; 83735; 83880; 84439; 84443; 84460; 84480; 84484; 85025; 85380; 85610; 85730; 86140; 93005; 94618; 94640; 96365; 96375; 96376; 99285; A9270; G0378; J1100; J1650; J3475; Q9967

== ENCOUNTER 2021-08-21 11:10 | Inpatient (IN) | payer MEDICARE, MEDICAID, SELFPAY ==
[2021-08-21] VITALS (37 sets, daily range): BP systolic 115–157; BP diastolic 53–85; PULSE 82–93; RESP 14–21; TEMP 36.1–37.1; O2SAT 92–100; BMI 32.3
--- NOTE | ~2021-08-21 | CT_ITS ---
EXAMINATION:CT diagnostic chest wo con DATE: 08/22/2021 06:40 INDICATION: Pulmonary infiltrates. COVID-19 positive 07/24/21. TECHNIQUE: Computed tomography (CT) of the chest was performed without intravenous contrast. Automate d exposure control and iterative reconstruction technique were employed. The dose-length product (DLP ) was 256.87 mGy-cm. COMPARISON: Chest CT 07/29/2021 FINDINGS: There is moderate emphysema. There are patchy areas of airspace opacity, groundglass opacit y, and septal thickening involving all lobes with some air bronchograms. No pleural effusion. The hea rt size is normal. There are coronary artery calcifications. No pericardial effusion. Main pulmonary artery is enlarged, consistent with pulmonary arterial hypertension. There is a small sliding hiatal hernia. There is contrast in the gallbladder. There is a 2.8 cm cyst in right kidney. There is mild t horacic spondylosis. IMPRESSION: 1. Diffuse lung disease with worsening from 07/29/2021, consistent with pneumonia. 2. Moderate emphysema. Reviewed, dictated and finalized at location A. IMPRESSION: 1. Diffuse lung disease with worsening from 07/29/2021, consistent with pneumoni a. 2. Moderate emphysema.
--- NOTE | ~2021-08-21 | CT_ITS ---
EXAMINATION: CT chest abdomen pelvis w con DATE: 08/27/2021 18:43 INDICATION: Worsening shortness of breath TECHNIQUE: Computed tomography (CT) of the chest, abdomen, and pelvis was performed with 100 cc Omnip aque 350 intravenous contrast. Automated exposure control and iterative reconstruction technique were employed. Exam dose: 944.53 mGy-cm total exam DLP. COMPARISON: 08/26/2021 portable AP chest 08/22/2021 CT chest 08/21/2021 CT abdomen pelvis FINDINGS: CHEST CT: There are are bilateral extensive patchy interstitial infiltrates, increased since 08/22/2021 consist ent with worsening pneumonia. There is bilateral hilar and mediastinal probable reactive lymphadenopathy. Cardiomegaly. No pericardial effusion. There is aortic, great vessel and coronary artery prominent atherosclerotic calcification. Small sliding hiatal hernia. ABDOMEN/PELVIS CT: The liver, spleen, pancreas, and adrenal glands are unremarkable. The gallbladder is distended. No ga llbladder wall thickening or pericholecystic fluid or fat stranding. No bile duct or pancreatic duct dilatation. Bilateral renal cysts, very small on the left, one larger cyst on the right measuring up to 3.3 cm di mension. No urinary tract calculus or hydroureteronephrosis. Status post hysterectomy. The urinary bladder is unremarkable. There is extensive calcification of the abdominal aorta. No intraperitoneal or retroperitoneal or pel shin mass lesion or adenopathy or ascites. Diverticulosis of the sigmoid and descending colon; no CT evidence of diverticulitis. No bowel obstru ction, bowel wall thickening, pneumatosis or intraperitoneal free air. Small fat-containing umbilical hernia. Status post posterior and interbody L4-5 surgical spinal fusion and right sacroiliac surgical fusion. IMPRESSION: Extensive patchy bilateral interstitial infiltrates, worse since 08/22/2021, consistent with worsening bilateral pneumonia Cardiomegaly Small sliding hiatal hernia Bilateral renal cysts Diverticulosis of the left colon; no CT evidence of diverticulitis Reviewed, dictated and finalized at Location [facility]. Reviewed, dictated and finalized at location A. IMPRESSION: Extensive patchy bilateral interstitial infiltrates, worse since , consistent with worsening bilateral pneumonia Cardiomegaly Small sliding hiatal hernia Bilateral renal cysts Diverticulosis of the left colon; no CT evidence of diverticulitis
--- NOTE | ~2021-08-21 | XR_ITS ---
EXAMINATION: XR abdomen/kub 1V INDICATION: Abdominal pain TECHNIQUE: Supine views of the abdomen were obtained on 2 radiographs. COMPARISON: None FINDINGS: The bowel gas pattern is normal. No dilated loops of bowel are evident. There are surgical changes in the lower lumbar spine and at the right sacroiliac joint. IMPRESSION: 1. Nonspecific bowel gas pattern. Reviewed, dictated and finalized at location A.
--- NOTE | ~2021-08-21 | XR_ITS ---
EXAMINATION: XR chest 1V portable INDICATION: Shortness of breath TECHNIQUE: Portable AP chest at 1621 hours COMPARISON: 08/24/2021 FINDINGS: Diffuse opacities persist throughout all lung zones without significant change. There is no pleural effusion or pneumothorax. The heart size appears normal. Calcified atherosclerosis is noted. IMPRESSION: 1. Stable diffuse lung disease, consistent with pneumonia and/or pulmonary edema and/or acute respira tory distress syndrome (ARDS). Reviewed, dictated and finalized at location A. IMPRESSION: 1. Stable diffuse lung disease, consistent with pneumonia and/or pulmonary hardeep a and/or acute respiratory distress syndrome (ARDS).
--- NOTE | ~2021-08-21 | XR_ITS ---
XR chest 1V portable 08/24/2021 15:18 Indication: Shortness of breath Procedure: AP portable chest Comparison: Comparison to multiple prior studies sequentially, with oldest reviewed study dated 03/21. Findings: Extensive bilateral airspace disease. Cardiomegaly. Bandlike consolidation in the mid thora x bilaterally which may represent atelectasis. No significant effusion or pneumothorax. No acute osse ous abnormality. There is atherosclerosis of the aorta. Impression: 1: Extensive bilateral airspace disease which may represent edema or pneumonia. Bandlike consolidatio n mid thoraces, possibly superimposed atelectasis. Reviewed, dictated and finalized at location B. Impression: 1: Extensive bilateral airspace disease which may represent edema or pneumonia. Bandlike consolidation mid thoraces, possibly superimposed atelectasis.
--- NOTE | ~2021-08-21 | CT_ITS ---
EXAMINATION: CT abdomen pelvis w con DATE: 08/21/2021 13:50 INDICATION: Right lower quadrant pain. TECHNIQUE: Computed tomography (CT) of the abdomen and pelvis was performed with 100 cc Omnipaque 350 intravenous contrast. The dose-length product was 1076.71 mGy-cm. Automated exposure control and ite rative reconstruction technique were employed. COMPARISON: CTA chest dated 07/29/2021. FINDINGS: Patchy areas of consolidation in the lower lungs, consistent with pneumonia. Heart size nor mal. No significant pleural or pericardial effusion. Gallbladder is distended. Fatty infiltration of the liver. The spleen, pancreas, adrenal glands and left kidney are unremarkable. There are renal cys ts, largest in the right kidney. There is abnormal thickening of the transverse, descending, sigmoid colon and rectum, consistent with colitis. No evidence for free air. No free fluid. No evidence for a bscess. There is atherosclerosis. Small hiatal hernia. No acute osseous abnormality. IMPRESSION: 1. Patchy bilateral airspace consolidation of the lung bases, compatible with pneumonia. 2: Extensive abnormal thickening of the colon and rectum, compatible with colitis, most likely infec tious. Reviewed, dictated and finalized at location A. IMPRESSION: 1. Patchy bilateral airspace consolidation of the lung bases, compatible with p neumonia. 2: Extensive abnormal thickening of the colon and rectum, compatible with coli tis, most likely infectious.
[2021-08-21 12:21] LABS: Basophils Absolute Auto 0.1 K/mm3 (0.0-0.1); Basophils Percent Auto 0.4 % (0.2-1.2); Eosinophils Percent Auto 0.1 % (0-4.4); Hematocrit 36.4 % (37.0-47.0); Hemoglobin 11.9 g/dL (12.0-15.0); Immature Granulocyte Absolute 0.08 K/mm3 (0.00-0.031); Immature Granulocyte Percent A 0.6 % (0-0.5); Lymphocytes Absolute Auto 0.44 K/mm3 (0.9-3.2); Lymphocytes Percent Auto 3.2 % (18.3-44.2); Mean Corpuscular HGB Conc 32.7 g/dl (32-36); Mean Corpuscular Hemoglobin 30.1 pg (26-34); Mean Corpuscular Volume 91.9 fl (80-100); Mean Platelet Volume 9.1 fl (7.4-10.4); Monocytes Absolute Auto 0.8 K/mm3 (0.1-0.6); Monocytes Percent Auto 5.7 % (2.6-8.5); Neutrophils Absolute Auto 12.4 K/mm3 (1.3-6.7); Platelet Count Result 245 k/mm3 (150-375); Red Blood Count 3.96 M/mm3 (4.2-5.4); Red Cell Distribution Width 14.3 % (11.5-14.5); White Blood Count 13.8 K/mm3 (4.5-10.0)
[2021-08-21 12:32] LABS: Alanine Aminotransferase 34 U/L (4-35); Alkaline Phosphatase 109 U/L (38-126); Anion Gap 12 mmol/L (8-16); Aspartate Amino Transferase 29 U/L (14-36); Bilirubin,Total 0.6 mg/dL (0.2-1.3); Blood Urea Nitrogen 15 mg/dL (7-17); Calcium 9.3 mg/dL (8.4-10.2); Carbon Dioxide 24 mmol/L (22-30); Chloride 98 mmol/L (98-107); Estimated CRCL calculation 66 ml/min; Estimated Glomerular Filt Rate > 60; Glucose 158 mg/dL (65-110); Lipase 71 U/L (23-300); Potassium 4.4 mmol/L (3.4-5.0); Sodium 134 mmol/L (137-145)
--- NOTE | 2021-08-21 12:43 | ED.ABDPAIN ---
HPI - Abdominal Pain General Chief Complaint: Abdominal Pain Stated Complaint: RLQ ABD PAIN Time Seen by Provider: 08/21/21 12:21 Source: patient, EMS and RN notes reviewed Mode of arrival: EMS Limitations: no limitations History of Present Illness HPI narrative: Patient presents with right lower quadrant pain that started earlier today, denies radiation of pain, gets worse with any movement, sometimes gets better and Tylenol. Associated with nausea and frequent vomiting. Patient denies having similar symptoms. History of partial hysterectomy, hypertension, hyperlipidemia, asthma. Currently patient on aspirin and Plavix for coronary artery disease. Patient denies any fever or chills. Patient is full code, does not smoke or drink or uses drugs Related Data Home Medications Medication Instructions Recorded Confirmed PreserVision AREDS-2 1 tablet PO DAILY 03/22/21 07/29/21 albuterol 180 mcg INHALATION TID 03/22/21 07/29/21 amlodipine 10 mg PO DAILY 03/22/21 07/29/21 bupropion HCl 100 mg PO BID 03/22/21 07/29/21 clopidogrel [Plavix] 75 mg PO DAILY 03/22/21 07/29/21 cyclobenzaprine 10 mg PO TID 03/22/21 07/29/21 fluoxetine [Prozac] 40 mg PO DAILY 03/22/21 07/29/21 hydrocodone-acetaminophen 1 tablet PO Q6-8H PRN 03/22/21 07/29/21 melatonin 10 mg PO HS 03/22/21 07/29/21 metoprolol tartrate 25 mg PO DAILY 03/22/21 07/29/21 multivitamin 1 tablet PO DAILY 03/22/21 07/29/21 omeprazole 20 mg PO DAILY 03/22/21 07/29/21 pravastatin 40 mg PO HS 03/22/21 07/29/21 Allergies Allergy/AdvReac Type Severity Reaction Status Date / Time naproxen Allergy Severe BLISTERS Verified 08/21/21 11:28 latex Allergy Unknown Rash Verified 08/21/21 11:28 Penicillins Allergy Unknown Rash Verified 08/21/21 11:28 Sulfa (Sulfonamide Allergy Unknown Redness of Verified 08/21/21 11:28 Antibiotics) Skin celecoxib AdvReac Unknown Gastrointestinal Verified 08/21/21 11:28 Upset NSAIDS (Non-Steroidal AdvReac Unknown Gastrointestinal Verified 08/21/21 11:28 Anti-Inflamma Upset Review of Systems Review of Systems: CONSTITUTIONAL: Denies fever, chills, or sweats. EYES: Denies visual changes, redness, or discharge. ENT: Denies rhinorrhea, congestion, sore throat, or otalgia. CARDIOVASCULAR: Denies chest pain, palpitations, or edema. RESPIRATORY: Denies cough or dyspnea. GASTROINTESTINAL: Denies abdominal pain, nausea, vomiting, or diarrhea. GENITOURINARY: Denies dysuria or hematuria. SKIN: Denies rash or itching. MUSCULOSKELETAL: Denies back pain, joint pain, or myalgia. NEUROLOGIC: Denies headache, numbness, or weakness. PSYCHIATRIC: Denies anxiety or depression. [facility] Past Medical History Medical History CAD (coronary artery disease) Depression with anxiety History of aortic valve disease History of carotid artery disease History of female genital cancer History of genital prolapse History of mitral valve prolapse in adulthood History of skin cancer HTN (hypertension) with goal to be determined Hyperlipidemia Macular degeneration Surgical History Surgical History H/O repair of rotator cuff Bilateral History of back surgery The cage to the lower back 3 times History of breast biopsy Fibrocystic breast History of carotid endarterectomy On the right History of cataract extraction C3 History of neck surgery History of removal of pigmented skin lesion Family History Family History Father Hypertension Family history of malignant neoplasm of esophagus Mother Hypertension Family history of throat cancer Sibling Family history of diabetes mellitus in first degree relative Other Family history of chronic obstructive pulmonary disease Social History Social History Social History: The patient worked as a ADMISSIONS RECRUITER. She is . S
[2021-08-21] MEDS: ONDANSETRON INJ 4 MG/2 ML VIAL IV PUSH (13:09)
[2021-08-21] MEDS: SODIUM CHLORIDE 0.9% IV 1,000 ML 999 ML IV CONT (13:09)
[2021-08-21] MEDS: HYDROmorphone HCL INJ (*CRX) 1 MG/ML SYR 0.5 MG IV PUSH (13:09)
[2021-08-21 14:44] LABS: Add Urine Microscopic? YES; Appearance Urine Clear (Clear); Bilirubin Urine Negative (Negative); Blood Urine Negative (Negative); Color Urine Amber (Yellow); Glucose Urine UA Negative (Negative); Ketones Urine Negative (Negative); Leukocyte Esterase Ur Negative LEU/UL (Negative); Mucus Urine Rare /lpf; Nitrate Urine Negative (Negative); Protein Urine 1+ mg/dL (Negative); Squamous Epithelial Cell Urine Many /hpf (Few); WBC Urine 0-3 /hpf
--- NOTE | 2021-08-21 17:00 | PM.IMHP ---
H&P: HPI History of Present Illness Date/Time: 08/21/21 17:00 Chief Complaint: Abdominal pain. Narrative: This is a 70-year-old female with history of coronary artery disease, hypertension, hyperlipidemia, GERD, and diverticulitis who presented to the emergency department earlier today via EMS from home for evaluation of abdominal pain. She was wakened from sleep at approximately 02:00 a sharp pain in her right lower quadrant though she is now having discomfort diffusely throughout the abdomen. It has been constant since the beginning and [place] x2 provided her with no significant relief; she has not found any significant alleviating factors. She has also had severe nausea and reports having 6 episodes of non bloody and non bilious emesis. CT of the abdomen and pelvis done on arrival to the emergency department showed extensive abnormal thickening of the colon and rectum compatible with colitis as well as patchy bilateral airspace consolidation of the lung bases compatible with pneumonia. With further questioning she mentions that she has not been feeling great for the past couple of days with generalized malaise, increasing fatigue, and a nonproductive cough. Since admission to the floor she has had several episodes of loose, watery stools without blood or mucus. It is noted that she was admitted to the hospital on 07/29/2021 with COVID pneumonia though she does not believe she received antibiotics at that time. Reportedly she was recently prescribed Keflex and erythromycin ointment for pink eye however I cannot find Keflex in the external medication history. No history of C diff. She denies recent travel and sick contacts. No fever. Review of Systems Review of Systems: Twelve systems were reviewed. She notes intermittent issues with changes in smell and taste since she had her COVID vaccination. Weight has remained stable. No headache. No syncope or near syncope. No sinus congestion, rhinorrhea, otalgia, or odynophagia. No dysphagia or concerns for aspiration. She denies orthopnea, PND, and lower extremity edema. No dysuria. No history of venous thromboembolism. Except as documented, all other systems were reviewed and are negative. 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 Coronary artery disease Depression with anxiety Gastroesophageal reflux disease History of female genital cancer Status post wide local excision of vaginal lesion. Hyperlipidemia Hypertension Inactive tuberculosis of lung Treated in 1984. Macular degeneration Mitral valve prolapse Obstructive sleep apnea Does not use CPAP. Pneumonia due to COVID-19 virus (07/2021) Surgical History Surgical History History of arthroscopy of right knee History of back surgery x3 History of breast biopsy History of cataract extraction History of colonoscopy with polypectomy History of esophagogastroduodenoscopy History of excision of lesion (02/2000) Wide local excision of vaginal lesion. Pathology demonstrated REN with a focus of koilocytotic atypia. History of neck surgery History of repair of rotator cuff History of right-sided carotid endarterectomy History of tubal ligation Status post surgical removal of malignant neoplasm of skin Family History Family History Father Hypertension Family history of malignant neoplasm of esophagus Mother Hypertension Family history of throat cancer Sibling Family history of diabetes mellitus in first degree relative Other Family history of chronic obstructive pulmonary disease Social History Social History (Updated 08/21/21 @ 20:51 by Elham Brandt PA-C) Social History: Surrogate decision maker: jd Weeks
--- NOTE | 2021-08-21 18:07 | PC.NURSE ---
This patient, Aline Ordaz, was admitted to 3 [facility] Surg Room 326-01. Patient/family oriented to hospital policies and general routines including ID bracelet, bed and alarms, visiting hours, pain management, procedures, bathroom and other care routines, personal items, smoking policy, room service/diet, and visiting hours. Information on how to activate the Rapid Response Team has been discussed. Patient/Family are encouraged to report perceived risks to care and to ask questions if they do not understand what they are told or what they should do.
[2021-08-21] MEDS: SODIUM CHLORIDE 0.9% IV 1,000 ML 125 ML IV CONT (18:18)
[2021-08-21] MEDS: metroNIDAZOLE 500 MG/ISO 100ML 500 MG/100 ML BAG 100 MG IVPB ×2 (19:54→23:09)
[2021-08-21] MEDS: MORPHINE SULFATE (*CRX) 2 MG/ML INJ IV PUSH (21:19)
[2021-08-21] MEDS: CYCLOBENZAPRINE HCL 10 MG TABLET PO (22:11)
[2021-08-21] MEDS: METOPROLOL TARTRATE 25 MG TABLET PO (22:12)
[2021-08-21] MEDS: PRAVASTATIN SODIUM 20 MG TABLET 40 MG PO (22:12)
[2021-08-21] MEDS: MELATONIN 5 MG TABLET 10 MG PO (22:12)
[2021-08-22] VITALS (10 sets, daily range): BP systolic 114–144; BP diastolic 40–55; PULSE 77–88; RESP 16–20; TEMP 36.3–37.7; O2SAT 93–98
[2021-08-22] MEDS: MORPHINE SULFATE (*CRX) 2 MG/ML INJ IV PUSH ×3 (02:26→18:19)
[2021-08-22] MEDS: SODIUM CHLORIDE 0.9% IV 1,000 ML 125 ML IV CONT (06:30)
[2021-08-22 06:37] LABS: Basophils Percent Auto 0.4 % (0.2-1.2); Eosinophils Absolute Auto 0.1 K/mm3 (0-0.3); Eosinophils Percent Auto 2.6 % (0-4.4); Hematocrit 27.6 % (37.0-47.0); Hemoglobin 8.9 g/dL (12.0-15.0); Immature Granulocyte Absolute 0.02 K/mm3 (0.00-0.031); Immature Granulocyte Percent A 0.4 % (0-0.5); Lymphocytes Absolute Auto 0.79 K/mm3 (0.9-3.2); Lymphocytes Percent Auto 16.9 % (18.3-44.2); Mean Corpuscular HGB Conc 32.2 g/dl (32-36); Mean Corpuscular Hemoglobin 30.2 pg (26-34); Mean Corpuscular Volume 93.6 fl (80-100); Mean Platelet Volume 8.9 fl (7.4-10.4); Monocytes Absolute Auto 0.6 K/mm3 (0.1-0.6); Neutrophils Absolute Auto 3.2 K/mm3 (1.3-6.7); Neutrophils Percent Auto 67.7 % (45.5-73.1); Platelet Count Result 171 k/mm3 (150-375); Red Blood Count 2.95 M/mm3 (4.2-5.4); Red Cell Distribution Width 14.5 % (11.5-14.5); White Blood Count 4.7 K/mm3 (4.5-10.0)
[2021-08-22] MEDS: metroNIDAZOLE 500 MG/ISO 100ML 500 MG/100 ML BAG 100 MG IVPB ×4 (06:37→23:52)
[2021-08-22 06:50] LABS: Alanine Aminotransferase 24 U/L (4-35); Albumin Level 2.9 g/dL (3.5-5.1); Alkaline Phosphatase 74 U/L (38-126); Anion Gap 5 mmol/L (8-16); Aspartate Amino Transferase 18 U/L (14-36); Bilirubin,Total 0.2 mg/dL (0.2-1.3); Blood Urea Nitrogen 7 mg/dL (7-17); Carbon Dioxide 25 mmol/L (22-30); Chloride 103 mmol/L (98-107); Estimated CRCL calculation 78 ml/min; Estimated Glomerular Filt Rate > 60; Glucose 111 mg/dL (65-110); Magnesium 1.9 mg/dL (1.6-2.3); Potassium 3.7 mmol/L (3.4-5.0); Sodium 133 mmol/L (137-145)
[2021-08-22] MEDS: ALBUTEROL SULFATE (*SP) AEROSOL 1 PUFF 2 PUFF INHALATION ×2 (08:43→20:37)
[2021-08-22] MEDS: MULTIVITAMINS THERAPEUTIC TAB (*BKC) 1 TABLET PO (08:48)
[2021-08-22] MEDS: ENOXAPARIN 40 MG/0.4 ML SYRINGE SUB-Q (08:48)
[2021-08-22] MEDS: PANTOPRAZOLE 40 MG TABLET PO (08:48)
[2021-08-22] MEDS: FLUoxetine HCL 20 MG CAPSULE 40 MG PO (08:48)
[2021-08-22] MEDS: buPROPion HCL SR (12HR) 100 MG TABCR PO ×2 (08:48→16:50)
[2021-08-22] MEDS: ASCORBIC ACID 500 MG TABLET 1000 MG PO ×2 (08:48→16:50)
[2021-08-22] MEDS: amLODIPine BESYLATE 5 MG TABLET 10 MG PO (08:49)
[2021-08-22] MEDS: CYCLOBENZAPRINE HCL 10 MG TABLET PO ×3 (08:49→16:50)
[2021-08-22] MEDS: CLOPIDOGREL BISULFATE 75 MG TABLET PO (08:49)
[2021-08-22] MEDS: METOPROLOL TARTRATE 25 MG TABLET PO ×2 (08:50→20:37)
[2021-08-22] MEDS: OPTI-GEN TAB 1 TABLET PO (08:50)
--- NOTE | 2021-08-22 11:30 | P.PNIM_ITS ---
Progress Note: A&P Assessment and Plan (1) Colitis: Code(s): K52.9 - Noninfective gastroenteritis and colitis, unspecified Status: Acute Assessment and Plan: * presentation with right lower quadrant abdominal pain associated with nausea and vomiting * CT scan found to have evidence of colitis on imaging, presumably infectious. * IV antibiotics:metronidazole and levofloxacin * WBC trending down * Still complaining of pain * Stool have decreased (2) Pneumonia: Qualifiers: Laterality: bilateral Lung location: lower lobe of lung Pneumonia type: due to unspecified organism Qualified Code(s): J18.9 - Pneumonia, unspecified organism Code(s): J18.9 - Pneumonia, unspecified organism Status: Acute Assessment and Plan: * CT of the abdomen and pelvis also showed patchy bilateral lower lobe pulmonary infiltrates * CT of the chest shows: 1. Diffuse lung disease with worsening from 07/29/2021, consistent with pneumonia 2. Moderate emphysema. * may very well be residual infiltrates seen on chest CTA on July 29, 2021 when she was admitted for COVID * Albuterol * Consider COPD medications * Will need outpatient PFTs * Supplemental oxygen * Maintain saturations greater than 94% (3) Hypoxia: Code(s): R09.02 - Hypoxemia Status: Acute Assessment and Plan: * Chronic * Home O2 of 2LNC * Will probably need a walk test prior to leaving * See above (4) Hypertension: Code(s): I10 - Essential (primary) hypertension Status: Acute Assessment and Plan: * BP stable, current 141/49 * Continue home medications amlodipine 10mg PO Daily * Trend BP * Adjust medications as needed (5) Hyperlipidemia: Code(s): E78.5 - Hyperlipidemia, unspecified Status: Chronic Assessment and Plan: * Continue home pravastatin 40mg PO HS (6) Gastroesophageal reflux disease: Code(s): K21.9 - Gastro-esophageal reflux disease without esophagitis Status: Acute Assessment and Plan: * Takes omeprazole at home * Change to protonix while in the hospital (7) Emphysema/COPD: Code(s): J43.9 - Emphysema, unspecified Status: Acute Assessment and Plan: * Found on chest CT this morning * Probably needs to be started on inhalers * Needs PFTs * Should follow up with Pulmonary at [place] Time Spent With Patient Time with patient: 25 - 35 minutes Subjective Date/time seen: 08/22/21 11:33 Interval history: Date/Time: 08/21/21 17:00 Narrative: This is a 70-year-old female with history of coronary artery disease, hypertension, hyperlipidemia, GERD, and diverticulitis who presented to the emergency department earlier today via EMS from home for evaluation of abdominal pain. She was wakened from sleep at approximately 02:00 a sharp pain in her right lower quadrant though she is now having discomfort diffusely throughout the abdomen. It has been constant since the beginning and [place] x2 provided her with no significant relief; she has not found any significant alleviating factors. She has also had severe nausea and reports having 6 episodes of non bloody and non bilious emesis. CT of the abdomen and pelvis done on arrival to the emergency department showed extensive abnormal thickening of the colon and rectum compatible with colitis as well as patchy bilateral airspace consolidation of the lung bases compatible with pneumonia. With further questioning she ment
--- NOTE | 2021-08-22 11:30 | PM.IMPN ---
Progress Note: A&P Assessment and Plan (1) Colitis: Code(s): K52.9 - Noninfective gastroenteritis and colitis, unspecified Status: Acute Assessment and Plan: presentation with right lower quadrant abdominal pain associated with nausea and vomiting CT scan found to have evidence of colitis on imaging, presumably infectious. IV antibiotics:metronidazole and levofloxacin WBC trending down Still complaining of pain Stool have decreased (2) Pneumonia: Qualifiers: Laterality: bilateral Lung location: lower lobe of lung Pneumonia type: due to unspecified organism Qualified Code(s): J18.9 - Pneumonia, unspecified organism Code(s): J18.9 - Pneumonia, unspecified organism Status: Acute Assessment and Plan: CT of the abdomen and pelvis also showed patchy bilateral lower lobe pulmonary infiltrates CT of the chest shows: 1. Diffuse lung disease with worsening from 07/29/2021, consistent with pneumonia 2. Moderate emphysema. may very well be residual infiltrates seen on chest CTA on July 29, 2021 when she was admitted for COVID Albuterol Consider COPD medications Will need outpatient PFTs Supplemental oxygen Maintain saturations greater than 94% (3) Hypoxia: Code(s): R09.02 - Hypoxemia Status: Acute Assessment and Plan: Chronic Home O2 of 2LNC Will probably need a walk test prior to leaving See above (4) Hypertension: Code(s): I10 - Essential (primary) hypertension Status: Acute Assessment and Plan: BP stable, current 141/49 Continue home medications amlodipine 10mg PO Daily Trend BP Adjust medications as needed (5) Hyperlipidemia: Code(s): E78.5 - Hyperlipidemia, unspecified Status: Chronic Assessment and Plan: Continue home pravastatin 40mg PO HS (6) Gastroesophageal reflux disease: Code(s): K21.9 - Gastro-esophageal reflux disease without esophagitis Status: Acute Assessment and Plan: Takes omeprazole at home Change to protonix while in the hospital (7) Emphysema/COPD: Code(s): J43.9 - Emphysema, unspecified Status: Acute Assessment and Plan: Found on chest CT this morning Probably needs to be started on inhalers Needs PFTs Should follow up with Pulmonary at [place] Time Spent With Patient Time with patient: 25 - 35 minutes Subjective Date/time seen: 08/22/21 11:33 Interval history: Date/Time: 08/21/21 17:00 Narrative: This is a 70-year-old female with history of coronary artery disease, hypertension, hyperlipidemia, GERD, and diverticulitis who presented to the emergency department earlier today via EMS from home for evaluation of abdominal pain. She was wakened from sleep at approximately 02:00 a sharp pain in her right lower quadrant though she is now having discomfort diffusely throughout the abdomen. It has been constant since the beginning and [place] x2 provided her with no significant relief; she has not found any significant alleviating factors. She has also had severe nausea and reports having 6 episodes of non bloody and non bilious emesis. CT of the abdomen and pelvis done on arrival to the emergency department showed extensive abnormal thickening of the colon and rectum compatible with colitis as well as patchy bilateral airspace consolidation of the lung bases compatible with pneumonia. With further questioning she mentions that she has not been feeling great for the past couple of days with generalized malaise, increasing fatigue, and a nonproductive cough. Since admission to the floor she has had several episodes of loose, watery stools without blood or mucus. It is noted that she was admitted to the hospital on 07/29/2021 with COVID pneumonia though she does not believe she received antibiotics at that time. Reportedly she was recently prescribed Keflex and erythromycin ointment for pink eye however
--- NOTE | 2021-08-22 14:56 | PCAUD ---
Pt denies needing to be straight cath. informed nurse was voided x3 this shift on bedside commode
[2021-08-22] MEDS: HYDROcodone/acetaminophen (*CRX) 7.5-325 MG TABLET 1 TAB PO (16:48)
[2021-08-22] MEDS: PRAVASTATIN SODIUM 20 MG TABLET 40 MG PO (20:37)
[2021-08-22] MEDS: MELATONIN 5 MG TABLET 10 MG PO (20:37)
[2021-08-23] VITALS (8 sets, daily range): BP systolic 103–142; BP diastolic 45–60; PULSE 74–88; RESP 18–22; TEMP 35.9–36.5; O2SAT 94–97
[2021-08-23] MEDS: MORPHINE SULFATE (*CRX) 2 MG/ML INJ IV PUSH ×4 (04:21→22:28)
[2021-08-23] MEDS: metroNIDAZOLE 500 MG/ISO 100ML 500 MG/100 ML BAG 100 MG IVPB ×3 (05:25→17:08)
[2021-08-23 06:52] LABS: Basophils Percent Auto 0.7 % (0.2-1.2); Eosinophils Absolute Auto 0.1 K/mm3 (0-0.3); Eosinophils Percent Auto 2.9 % (0-4.4); Hematocrit 27.6 % (37.0-47.0); Hemoglobin 9.1 g/dL (12.0-15.0); Immature Granulocyte Absolute 0.03 K/mm3 (0.00-0.031); Immature Granulocyte Percent A 0.7 % (0-0.5); Lymphocytes Absolute Auto 0.72 K/mm3 (0.9-3.2); Lymphocytes Percent Auto 17.1 % (18.3-44.2); Mean Corpuscular Hemoglobin 29.8 pg (26-34); Mean Corpuscular Volume 90.5 fl (80-100); Monocytes Absolute Auto 0.5 K/mm3 (0.1-0.6); Monocytes Percent Auto 10.9 % (2.6-8.5); Neutrophils Absolute Auto 2.9 K/mm3 (1.3-6.7); Neutrophils Percent Auto 67.7 % (45.5-73.1); Platelet Count Result 186 k/mm3 (150-375); Red Blood Count 3.05 M/mm3 (4.2-5.4); Red Cell Distribution Width 14.2 % (11.5-14.5); White Blood Count 4.2 K/mm3 (4.5-10.0)
[2021-08-23 06:56] LABS: Alanine Aminotransferase 22 U/L (4-35); Albumin Level 3.1 g/dL (3.5-5.1); Alkaline Phosphatase 82 U/L (38-126); Anion Gap 6 mmol/L (8-16); Aspartate Amino Transferase 17 U/L (14-36); Bilirubin,Total 0.1 mg/dL (0.2-1.3); Blood Urea Nitrogen 2 mg/dL (7-17); Calcium 8.3 mg/dL (8.4-10.2); Carbon Dioxide 27 mmol/L (22-30); Chloride 102 mmol/L (98-107); Estimated CRCL calculation 78 ml/min; Estimated Glomerular Filt Rate > 60; Glucose 109 mg/dL (65-110); Magnesium 1.6 mg/dL (1.6-2.3); Potassium 3.4 mmol/L (3.4-5.0); Sodium 135 mmol/L (137-145)
[2021-08-23] MEDS: ENOXAPARIN 40 MG/0.4 ML SYRINGE SUB-Q (08:21)
[2021-08-23] MEDS: METOPROLOL TARTRATE 25 MG TABLET PO ×2 (08:21→22:18)
[2021-08-23] MEDS: amLODIPine BESYLATE 5 MG TABLET 10 MG PO (08:21)
[2021-08-23] MEDS: CYCLOBENZAPRINE HCL 10 MG TABLET PO ×3 (08:22→16:27)
[2021-08-23] MEDS: buPROPion HCL SR (12HR) 100 MG TABCR PO ×2 (08:22→16:27)
[2021-08-23] MEDS: MULTIVITAMINS THERAPEUTIC TAB (*BKC) 1 TABLET PO (08:22)
[2021-08-23] MEDS: PANTOPRAZOLE 40 MG TABLET PO (08:22)
[2021-08-23] MEDS: OPTI-GEN TAB 1 TABLET PO (08:22)
[2021-08-23] MEDS: CLOPIDOGREL BISULFATE 75 MG TABLET PO (08:22)
[2021-08-23] MEDS: ASCORBIC ACID 500 MG TABLET 1000 MG PO ×2 (08:22→16:27)
[2021-08-23] MEDS: FLUoxetine HCL 20 MG CAPSULE 40 MG PO (08:22)
[2021-08-23] MEDS: ALBUTEROL SULFATE (*SP) AEROSOL 1 PUFF 2 PUFF INHALATION ×3 (09:03→21:21)
[2021-08-23] MEDS: MAGNESIUM SULF 2 GM/WATER 50ML 2 GM/50 ML BAG IVPB (09:55)
--- NOTE | 2021-08-23 12:00 | P.PNIM_ITS ---
Progress Note: A&P Assessment and Plan (1) Colitis: Code(s): K52.9 - Noninfective gastroenteritis and colitis, unspecified Status: Acute Assessment and Plan: * presentation with right lower quadrant abdominal pain associated with nausea and vomiting * CT scan found to have evidence of colitis on imaging, presumably infectious. * IV antibiotics:metronidazole and levofloxacin * WBC trending down * Still complaining of pain * Stool have decreased * Add Bentyl (2) Pneumonia: Qualifiers: Laterality: bilateral Lung location: lower lobe of lung Pneumonia type: due to unspecified organism Qualified Code(s): J18.9 - Pneumonia, unspeci fied organism Code(s): J18.9 - Pneumonia, unspecified organism Status: Acute Assessment and Plan: * CT of the abdomen and pelvis also showed patchy bilateral lower lobe pulmonary infiltrates * CT of the chest shows: 1. Diffuse lung disease with worsening from 07/29/2021, consistent with pneumonia 2. Moderate emphysema. * may very well be residual infiltrates seen on chest CTA on July 29, 2021 when she was admitted for COVID * Albuterol * Consider COPD medications * Will need outpatient PFTs * Supplemental oxygen * Maintain saturations greater than 94% (3) Hypoxia: Code(s): R09.02 - Hypoxemia Status: Acute Assessment and Plan: * Chronic * Home O2 of 2LNC * Will probably need a walk test prior to leaving * See above (4) Hypertension: Code(s): I10 - Essential (primary) hypertension Status: Acute Assessment and Plan: * BP stable, current 103/45 * Continue home medications amlodipine 10mg PO Daily * Trend BP * Adjust medications as needed (5) Hyperlipidemia: Code(s): E78.5 - Hyperlipidemia, unspecified Status: Chronic Assessment and Plan: * Continue home pravastatin 40mg PO HS (6) Gastroesophageal reflux disease: Code(s): K21.9 - Gastro-esophageal reflux disease without esophagitis Status: Acute Assessment and Plan: * Takes omeprazole at home * Change to protonix while in the hospital (7) Emphysema/COPD: Code(s): J43.9 - Emphysema, unspecified Status: Acute Assessment and Plan: * Found on chest CT this morning * Probably needs to be started on inhalers * Will try put patient on Anoro Ellipta and albuterol inhaler * Needs PFTs * Should follow up with Pulmonary at [place] Time Spent With Patient Time with patient: Greater than 35 minutes Subjective Date/time seen: 08/23/21 12:00 Interval history: Date/Time: 08/21/21 17:00 Narrative: This is a 70-year-old female with history of coronary artery disease, hypertension, hyperlipidemia, GERD, and diverticulitis who presented to the emergency department earlier today via EMS from home for evaluation of abdominal pain. She was wakened from sleep at approximately 02:00 a sharp pain in her right lower quadrant though she is now having discomfort diffusely throughout the abdomen. It has been constant since the beginning and [place] x2 provided her with no significant relief; she has not found any significant alleviating factors. She has also had severe nausea and reports having 6 episodes of non bloody and non bilious emesis. CT of the abdomen and pelvis done on arrival to the emergency department showed extensive abnormal thickening of the colon and rectum compatible with colitis as well as patchy bila
--- NOTE | 2021-08-23 12:00 | PM.IMPN ---
Progress Note: A&P Assessment and Plan (1) Colitis: Code(s): K52.9 - Noninfective gastroenteritis and colitis, unspecified Status: Acute Assessment and Plan: presentation with right lower quadrant abdominal pain associated with nausea and vomiting CT scan found to have evidence of colitis on imaging, presumably infectious. IV antibiotics:metronidazole and levofloxacin WBC trending down Still complaining of pain Stool have decreased Add Bentyl (2) Pneumonia: Qualifiers: Laterality: bilateral Lung location: lower lobe of lung Pneumonia type: due to unspecified organism Qualified Code(s): J18.9 - Pneumonia, unspecified organism Code(s): J18.9 - Pneumonia, unspecified organism Status: Acute Assessment and Plan: CT of the abdomen and pelvis also showed patchy bilateral lower lobe pulmonary infiltrates CT of the chest shows: 1. Diffuse lung disease with worsening from 07/29/2021, consistent with pneumonia 2. Moderate emphysema. may very well be residual infiltrates seen on chest CTA on July 29, 2021 when she was admitted for COVID Albuterol Consider COPD medications Will need outpatient PFTs Supplemental oxygen Maintain saturations greater than 94% (3) Hypoxia: Code(s): R09.02 - Hypoxemia Status: Acute Assessment and Plan: Chronic Home O2 of 2LNC Will probably need a walk test prior to leaving See above (4) Hypertension: Code(s): I10 - Essential (primary) hypertension Status: Acute Assessment and Plan: BP stable, current 103/45 Continue home medications amlodipine 10mg PO Daily Trend BP Adjust medications as needed (5) Hyperlipidemia: Code(s): E78.5 - Hyperlipidemia, unspecified Status: Chronic Assessment and Plan: Continue home pravastatin 40mg PO HS (6) Gastroesophageal reflux disease: Code(s): K21.9 - Gastro-esophageal reflux disease without esophagitis Status: Acute Assessment and Plan: Takes omeprazole at home Change to protonix while in the hospital (7) Emphysema/COPD: Code(s): J43.9 - Emphysema, unspecified Status: Acute Assessment and Plan: Found on chest CT this morning Probably needs to be started on inhalers Will try put patient on Anoro Ellipta and albuterol inhaler Needs PFTs Should follow up with Pulmonary at [place] Time Spent With Patient Time with patient: Greater than 35 minutes Subjective Date/time seen: 08/23/21 12:00 Interval history: Date/Time: 08/21/21 17:00 Narrative: This is a 70-year-old female with history of coronary artery disease, hypertension, hyperlipidemia, GERD, and diverticulitis who presented to the emergency department earlier today via EMS from home for evaluation of abdominal pain. She was wakened from sleep at approximately 02:00 a sharp pain in her right lower quadrant though she is now having discomfort diffusely throughout the abdomen. It has been constant since the beginning and [place] x2 provided her with no significant relief; she has not found any significant alleviating factors. She has also had severe nausea and reports having 6 episodes of non bloody and non bilious emesis. CT of the abdomen and pelvis done on arrival to the emergency department showed extensive abnormal thickening of the colon and rectum compatible with colitis as well as patchy bilateral airspace consolidation of the lung bases compatible with pneumonia. With further questioning she mentions that she has not been feeling great for the past couple of days with generalized malaise, increasing fatigue, and a nonproductive cough. Since admission to the floor she has had several episodes of loose, watery stools without blood or mucus. It is noted that she was admitted to the hospital on 07/29/2021 with COVID pneumonia though she does not believe she received antibiotics at that time. Rep
[2021-08-23] MEDS: DICYCLOMINE HCL 10 MG CAPSULE 20 MG PO ×2 (16:27→22:17)
[2021-08-23] MEDS: HYDROcodone/acetaminophen (*CRX) 7.5-325 MG TABLET 1 TAB PO (16:29)
[2021-08-23] MEDS: UMECLIDINIUM/VILANTEROL 62.5-25 MCG ELLIPTA 1 PUFF INHALATION (18:31)
[2021-08-23] MEDS: PRAVASTATIN SODIUM 20 MG TABLET 40 MG PO (22:18)
[2021-08-23] MEDS: MELATONIN 5 MG TABLET 10 MG PO (22:18)
[2021-08-24] VITALS (7 sets, daily range): BP systolic 131–149; BP diastolic 48–59; PULSE 81–101; RESP 16–20; TEMP 37.3–37.6; O2SAT 90–94
[2021-08-24] MEDS: metroNIDAZOLE 500 MG/ISO 100ML 500 MG/100 ML BAG 100 MG IVPB ×4 (00:30→18:39)
[2021-08-24] MEDS: HYDROcodone/acetaminophen (*CRX) 7.5-325 MG TABLET 1 TAB PO ×4 (05:39→23:59)
[2021-08-24] MEDS: DICYCLOMINE HCL 10 MG CAPSULE 20 MG PO ×4 (08:23→20:56)
[2021-08-24] MEDS: amLODIPine BESYLATE 5 MG TABLET 10 MG PO (08:23)
[2021-08-24] MEDS: FLUoxetine HCL 20 MG CAPSULE 40 MG PO (08:24)
[2021-08-24] MEDS: CYCLOBENZAPRINE HCL 10 MG TABLET PO ×3 (08:24→17:34)
[2021-08-24] MEDS: OPTI-GEN TAB 1 TABLET PO (08:24)
[2021-08-24] MEDS: ENOXAPARIN 40 MG/0.4 ML SYRINGE SUB-Q (08:24)
[2021-08-24] MEDS: CLOPIDOGREL BISULFATE 75 MG TABLET PO (08:25)
[2021-08-24] MEDS: PANTOPRAZOLE 40 MG TABLET PO (08:25)
[2021-08-24] MEDS: METOPROLOL TARTRATE 25 MG TABLET PO ×2 (08:25→20:59)
[2021-08-24] MEDS: buPROPion HCL SR (12HR) 100 MG TABCR PO ×2 (08:26→17:35)
[2021-08-24] MEDS: ASCORBIC ACID 500 MG TABLET 1000 MG PO ×2 (08:26→17:35)
[2021-08-24] MEDS: MULTIVITAMINS THERAPEUTIC TAB (*BKC) 1 TABLET PO (08:26)
[2021-08-24] MEDS: UMECLIDINIUM/VILANTEROL 62.5-25 MCG ELLIPTA 1 PUFF INHALATION (08:59)
[2021-08-24] MEDS: ALBUTEROL SULFATE (*SP) AEROSOL 1 PUFF 2 PUFF INHALATION ×2 (08:59→14:06)
[2021-08-24] MEDS: MAGNESIUM SULF 2 GM/WATER 50ML 2 GM/50 ML BAG IVPB (10:24)
--- NOTE | 2021-08-24 15:36 | P.PNIM_ITS ---
Progress Note: A&P Assessment and Plan (1) Colitis: Code(s): K52.9 - Noninfective gastroenteritis and colitis, unspecified Status: Acute Assessment and Plan: * presentation with right lower quadrant abdominal pain associated with nausea and vomiting * CT scan found to have evidence of colitis on imaging, presumably infectious. * IV antibiotics:metronidazole and levofloxacin * WBC trending down * Still complaining of pain * Stool have decreased * Add Bentyl (2) Pneumonia: Qualifiers: Laterality: bilateral Lung location: lower lobe of lung Pneumonia type: due to unspecified organism Qualified Code(s): J18.9 - Pneumonia, unspeci fied organism Code(s): J18.9 - Pneumonia, unspecified organism Status: Acute Assessment and Plan: * CT of the abdomen and pelvis also showed patchy bilateral lower lobe pulmonary infiltrates * CT of the chest shows: 1. Diffuse lung disease with worsening from 07/29/2021, consistent with pneumonia 2. Moderate emphysema. * may very well be residual infiltrates seen on chest CTA on July 29, 2021 when she was admitted for COVID * Albuterol * Anoro Ellipta 1 puff * Will need outpatient PFTs * Supplemental oxygen * Maintain saturations greater than 94% (3) Hypoxia: Code(s): R09.02 - Hypoxemia Status: Acute Assessment and Plan: * Chronic * Home O2 of 2LNC * Will probably need a walk test prior to leaving * See above (4) Hypertension: Code(s): I10 - Essential (primary) hypertension Status: Acute Assessment and Plan: * BP stable, current 149/48 * Continue home medications amlodipine 10mg PO Daily * Trend BP * Adjust medications as needed (5) Hyperlipidemia: Code(s): E78.5 - Hyperlipidemia, unspecified Status: Chronic Assessment and Plan: * Continue home pravastatin 40mg PO HS (6) Gastroesophageal reflux disease: Code(s): K21.9 - Gastro-esophageal reflux disease without esophagitis Status: Acute Assessment and Plan: * Takes omeprazole at home * Change to protonix while in the hospital (7) Emphysema/COPD: Code(s): J43.9 - Emphysema, unspecified Status: Acute Assessment and Plan: * Found on chest CT this morning * Probably needs to be started on inhalers * Will try put patient on Anoro Ellipta and albuterol inhaler * Needs PFTs * Should follow up with Pulmonary at [place] (8) Fluid overload: Code(s): E87.70 - Fluid overload, unspecified Status: Acute Assessment and Plan: * Chest xray 1: Extensive bilateral airspace disease which may represent edema or pneumonia. Bandlike consolidation mid thoraces, possibly superimposed atelectasis. * Will get BNP * Get echo * 1mg IV bumex Subjective Date/time seen: 08/24/21 15:36 Interval history: Date/Time: 08/21/21 17:00 Narrative: This is a 70-year-old female with history of coronary artery disease, hypertension, hyperlipidemia, GERD, and diverticulitis who presented to the emergency department earlier today via EMS from home for evaluation of abdominal pain. She was wakened from sleep at approximately 02:00 a sharp pain in her right lower quadrant though she is now having discomfort diffusely throughout the abdomen. It has been constant since the beginning and [place] x2 provided her with no significant relie
--- NOTE | 2021-08-24 15:36 | PM.IMPN ---
Progress Note: A&P Assessment and Plan (1) Colitis: Code(s): K52.9 - Noninfective gastroenteritis and colitis, unspecified Status: Acute Assessment and Plan: presentation with right lower quadrant abdominal pain associated with nausea and vomiting CT scan found to have evidence of colitis on imaging, presumably infectious. IV antibiotics:metronidazole and levofloxacin WBC trending down Still complaining of pain Stool have decreased Add Bentyl (2) Pneumonia: Qualifiers: Laterality: bilateral Lung location: lower lobe of lung Pneumonia type: due to unspecified organism Qualified Code(s): J18.9 - Pneumonia, unspecified organism Code(s): J18.9 - Pneumonia, unspecified organism Status: Acute Assessment and Plan: CT of the abdomen and pelvis also showed patchy bilateral lower lobe pulmonary infiltrates CT of the chest shows: 1. Diffuse lung disease with worsening from 07/29/2021, consistent with pneumonia 2. Moderate emphysema. may very well be residual infiltrates seen on chest CTA on July 29, 2021 when she was admitted for COVID Albuterol Anoro Ellipta 1 puff Will need outpatient PFTs Supplemental oxygen Maintain saturations greater than 94% (3) Hypoxia: Code(s): R09.02 - Hypoxemia Status: Acute Assessment and Plan: Chronic Home O2 of 2LNC Will probably need a walk test prior to leaving See above (4) Hypertension: Code(s): I10 - Essential (primary) hypertension Status: Acute Assessment and Plan: BP stable, current 149/48 Continue home medications amlodipine 10mg PO Daily Trend BP Adjust medications as needed (5) Hyperlipidemia: Code(s): E78.5 - Hyperlipidemia, unspecified Status: Chronic Assessment and Plan: Continue home pravastatin 40mg PO HS (6) Gastroesophageal reflux disease: Code(s): K21.9 - Gastro-esophageal reflux disease without esophagitis Status: Acute Assessment and Plan: Takes omeprazole at home Change to protonix while in the hospital (7) Emphysema/COPD: Code(s): J43.9 - Emphysema, unspecified Status: Acute Assessment and Plan: Found on chest CT this morning Probably needs to be started on inhalers Will try put patient on Anoro Ellipta and albuterol inhaler Needs PFTs Should follow up with Pulmonary at [place] (8) Fluid overload: Code(s): E87.70 - Fluid overload, unspecified Status: Acute Assessment and Plan: Chest xray 1: Extensive bilateral airspace disease which may represent edema or pneumonia. Bandlike consolidation mid thoraces, possibly superimposed atelectasis. Will get BNP Get echo 1mg IV bumex Subjective Date/time seen: 08/24/21 15:36 Interval history: Date/Time: 08/21/21 17:00 Narrative: This is a 70-year-old female with history of coronary artery disease, hypertension, hyperlipidemia, GERD, and diverticulitis who presented to the emergency department earlier today via EMS from home for evaluation of abdominal pain. She was wakened from sleep at approximately 02:00 a sharp pain in her right lower quadrant though she is now having discomfort diffusely throughout the abdomen. It has been constant since the beginning and [place] x2 provided her with no significant relief; she has not found any significant alleviating factors. She has also had severe nausea and reports having 6 episodes of non bloody and non bilious emesis. CT of the abdomen and pelvis done on arrival to the emergency department showed extensive abnormal thickening of the colon and rectum compatible with colitis as well as patchy bilateral airspace consolidation of the lung bases compatible with pneumonia. With further questioning she mentions that she has not been feeling great for the past couple of days with generalized malaise, increasing fatigue, and a nonprod
[2021-08-24] MEDS: BUMETANIDE INJ 1 MG/4 ML VIAL IV PUSH (17:59)
[2021-08-24] MEDS: PRAVASTATIN SODIUM 20 MG TABLET 40 MG PO (20:56)
[2021-08-24] MEDS: MELATONIN 5 MG TABLET 10 MG PO (20:56)
[2021-08-25] VITALS (9 sets, daily range): BP systolic 124–128; BP diastolic 58–62; PULSE 86–110; RESP 16–20; TEMP 36.6–37.3; O2SAT 91–93
[2021-08-25] MEDS: metroNIDAZOLE 500 MG/ISO 100ML 500 MG/100 ML BAG 100 MG IVPB ×4 (05:58→18:11)
[2021-08-25 06:38] LABS: Basophils Percent Auto 0.5 % (0.2-1.2); Eosinophils Absolute Auto 0.1 K/mm3 (0-0.3); Eosinophils Percent Auto 2.5 % (0-4.4); Hematocrit 28.7 % (37.0-47.0); Hemoglobin 9.4 g/dL (12.0-15.0); Immature Granulocyte Absolute 0.02 K/mm3 (0.00-0.031); Immature Granulocyte Percent A 0.5 % (0-0.5); Lymphocytes Absolute Auto 0.96 K/mm3 (0.9-3.2); Lymphocytes Percent Auto 21.8 % (18.3-44.2); Mean Corpuscular HGB Conc 32.8 g/dl (32-36); Mean Corpuscular Volume 91.7 fl (80-100); Mean Platelet Volume 8.9 fl (7.4-10.4); Monocytes Absolute Auto 0.6 K/mm3 (0.1-0.6); Monocytes Percent Auto 13.9 % (2.6-8.5); Neutrophils Absolute Auto 2.7 K/mm3 (1.3-6.7); Neutrophils Percent Auto 60.8 % (45.5-73.1); Platelet Count Result 191 k/mm3 (150-375); Red Blood Count 3.13 M/mm3 (4.2-5.4); Red Cell Distribution Width 14.5 % (11.5-14.5); White Blood Count 4.4 K/mm3 (4.5-10.0)
[2021-08-25 06:48] LABS: Alanine Aminotransferase 24 U/L (4-35); Albumin Level 3.2 g/dL (3.5-5.1); Alkaline Phosphatase 83 U/L (38-126); Anion Gap 8 mmol/L (8-16); Aspartate Amino Transferase 27 U/L (14-36); Bilirubin,Total 0.2 mg/dL (0.2-1.3); Calcium 8.4 mg/dL (8.4-10.2); Carbon Dioxide 29 mmol/L (22-30); Chloride 96 mmol/L (98-107); Estimated CRCL calculation 78 ml/min; Estimated Glomerular Filt Rate > 60; Glucose 112 mg/dL (65-110); Magnesium 1.8 mg/dL (1.6-2.3); Potassium 3.1 mmol/L (3.4-5.0); Sodium 133 mmol/L (137-145)
[2021-08-25 06:49] LABS: Blood Urea Nitrogen < 2 mg/dL (7-17)
[2021-08-25 06:52] LABS: NT Pro B Type Natriuretic Pept 333 pg/mL (5-100)
[2021-08-25] MEDS: SIMETHICONE 80 MG TAB.CHEW PO ×3 (08:03→18:11)
[2021-08-25] MEDS: ENOXAPARIN 40 MG/0.4 ML SYRINGE SUB-Q (08:03)
[2021-08-25] MEDS: buPROPion HCL SR (12HR) 100 MG TABCR PO ×2 (08:03→16:42)
[2021-08-25] MEDS: HYDROcodone/acetaminophen (*CRX) 7.5-325 MG TABLET 1 TAB PO ×3 (08:03→21:15)
[2021-08-25] MEDS: PANTOPRAZOLE 40 MG TABLET PO (08:04)
[2021-08-25] MEDS: OPTI-GEN TAB 1 TABLET PO (08:04)
[2021-08-25] MEDS: ASCORBIC ACID 500 MG TABLET 1000 MG PO ×2 (08:04→16:42)
[2021-08-25] MEDS: CYCLOBENZAPRINE HCL 10 MG TABLET PO ×3 (08:04→16:42)
[2021-08-25] MEDS: DICYCLOMINE HCL 10 MG CAPSULE 20 MG PO ×4 (08:04→21:16)
[2021-08-25] MEDS: FLUoxetine HCL 20 MG CAPSULE 40 MG PO (08:04)
[2021-08-25] MEDS: METOPROLOL TARTRATE 25 MG TABLET PO ×2 (08:04→21:15)
[2021-08-25] MEDS: CLOPIDOGREL BISULFATE 75 MG TABLET PO (08:05)
[2021-08-25] MEDS: MULTIVITAMINS THERAPEUTIC TAB (*BKC) 1 TABLET PO (08:05)
[2021-08-25] MEDS: amLODIPine BESYLATE 5 MG TABLET 10 MG PO (08:05)
[2021-08-25] MEDS: UMECLIDINIUM/VILANTEROL 62.5-25 MCG ELLIPTA 1 PUFF INHALATION (08:24)
[2021-08-25] MEDS: ALBUTEROL SULFATE (*SP) AEROSOL 1 PUFF 2 PUFF INHALATION ×3 (08:24→21:09)
--- NOTE | 2021-08-25 16:20 | PM.IMPN ---
Progress Note: A&P Assessment and Plan (1) Colitis: Code(s): K52.9 - Noninfective gastroenteritis and colitis, unspecified Status: Acute Assessment and Plan: presentation with right lower quadrant abdominal pain associated with nausea and vomiting CT scan found to have evidence of colitis on imaging, presumably infectious. IV antibiotics:metronidazole and levofloxacin WBC trending down Still complaining of pain Stool have decreased Add Bentyl (2) Pneumonia: Qualifiers: Laterality: bilateral Lung location: lower lobe of lung Pneumonia type: due to unspecified organism Qualified Code(s): J18.9 - Pneumonia, unspecified organism Code(s): J18.9 - Pneumonia, unspecified organism Status: Acute Assessment and Plan: CT of the abdomen and pelvis also showed patchy bilateral lower lobe pulmonary infiltrates CT of the chest shows: 1. Diffuse lung disease with worsening from 07/29/2021, consistent with pneumonia 2. Moderate emphysema. may very well be residual infiltrates seen on chest CTA on July 29, 2021 when she was admitted for COVID Albuterol Anoro Ellipta 1 puff Will need outpatient PFTs Supplemental oxygen Maintain saturations greater than 94% (3) Hypoxia: Code(s): R09.02 - Hypoxemia Status: Acute Assessment and Plan: Chronic Home O2 of 2LNC Will probably need a walk test prior to leaving See above (4) Hypertension: Code(s): I10 - Essential (primary) hypertension Status: Acute Assessment and Plan: BP stable, current 126/58 Continue home medications amlodipine 10mg PO Daily Trend BP Adjust medications as needed (5) Hyperlipidemia: Code(s): E78.5 - Hyperlipidemia, unspecified Status: Chronic Assessment and Plan: Continue home pravastatin 40mg PO HS (6) Gastroesophageal reflux disease: Code(s): K21.9 - Gastro-esophageal reflux disease without esophagitis Status: Acute Assessment and Plan: Takes omeprazole at home Change to protonix while in the hospital (7) Emphysema/COPD: Code(s): J43.9 - Emphysema, unspecified Status: Acute Assessment and Plan: Found on chest CT this morning Probably needs to be started on inhalers Will try put patient on Anoro Ellipta and albuterol inhaler Needs PFTs Should follow up with Pulmonary at [place] (8) Fluid overload: Code(s): E87.70 - Fluid overload, unspecified Status: Acute Assessment and Plan: Chest xray 1: Extensive bilateral airspace disease which may represent edema or pneumonia. Bandlike consolidation mid thoraces, possibly superimposed atelectasis. BNP 333 Get echo 40 mg IV Lasix 1 time Time Spent With Patient Time with patient: Greater than 35 minutes Subjective Date/time seen: 08/25/21 16:51 Interval history: Date/Time: 08/21/21 17:00 Narrative: This is a 70-year-old female with history of coronary artery disease, hypertension, hyperlipidemia, GERD, and diverticulitis who presented to the emergency department earlier today via EMS from home for evaluation of abdominal pain. She was wakened from sleep at approximately 02:00 a sharp pain in her right lower quadrant though she is now having discomfort diffusely throughout the abdomen. It has been constant since the beginning and [place] x2 provided her with no significant relief; she has not found any significant alleviating factors. She has also had severe nausea and reports having 6 episodes of non bloody and non bilious emesis. CT of the abdomen and pelvis done on arrival to the emergency department showed extensive abnormal thickening of the colon and rectum compatible with colitis as well as patchy bilateral airspace consolidation of the lung bases compatible with pneumonia. With further questioning she mentions that she has not been feeling great for the past co
--- NOTE | 2021-08-25 16:20 | P.PNIM_ITS ---
Progress Note: A&P Assessment and Plan (1) Colitis: Code(s): K52.9 - Noninfective gastroenteritis and colitis, unspecified Status: Acute Assessment and Plan: * presentation with right lower quadrant abdominal pain associated with nausea and vomiting * CT scan found to have evidence of colitis on imaging, presumably infectious. * IV antibiotics:metronidazole and levofloxacin * WBC trending down * Still complaining of pain * Stool have decreased * Add Bentyl (2) Pneumonia: Qualifiers: Laterality: bilateral Lung location: lower lobe of lung Pneumonia type: due to unspecified organism Qualified Code(s): J18.9 - Pneumonia, unspeci fied organism Code(s): J18.9 - Pneumonia, unspecified organism Status: Acute Assessment and Plan: * CT of the abdomen and pelvis also showed patchy bilateral lower lobe pulmonary infiltrates * CT of the chest shows: 1. Diffuse lung disease with worsening from 07/29/2021, consistent with pneumonia 2. Moderate emphysema. * may very well be residual infiltrates seen on chest CTA on July 29, 2021 when she was admitted for COVID * Albuterol * Anoro Ellipta 1 puff * Will need outpatient PFTs * Supplemental oxygen * Maintain saturations greater than 94% (3) Hypoxia: Code(s): R09.02 - Hypoxemia Status: Acute Assessment and Plan: * Chronic * Home O2 of 2LNC * Will probably need a walk test prior to leaving * See above (4) Hypertension: Code(s): I10 - Essential (primary) hypertension Status: Acute Assessment and Plan: * BP stable, current 126/58 * Continue home medications amlodipine 10mg PO Daily * Trend BP * Adjust medications as needed (5) Hyperlipidemia: Code(s): E78.5 - Hyperlipidemia, unspecified Status: Chronic Assessment and Plan: * Continue home pravastatin 40mg PO HS (6) Gastroesophageal reflux disease: Code(s): K21.9 - Gastro-esophageal reflux disease without esophagitis Status: Acute Assessment and Plan: * Takes omeprazole at home * Change to protonix while in the hospital (7) Emphysema/COPD: Code(s): J43.9 - Emphysema, unspecified Status: Acute Assessment and Plan: * Found on chest CT this morning * Probably needs to be started on inhalers * Will try put patient on Anoro Ellipta and albuterol inhaler * Needs PFTs * Should follow up with Pulmonary at [place] (8) Fluid overload: Code(s): E87.70 - Fluid overload, unspecified Status: Acute Assessment and Plan: * Chest xray 1: Extensive bilateral airspace disease which may represent edema or pneumonia. Bandlike consolidation mid thoraces, possibly superimposed atelectasis. * BNP 333 * Get echo * 40 mg IV Lasix 1 time Time Spent With Patient Time with patient: Greater than 35 minutes Subjective Date/time seen: 08/25/21 16:51 Interval history: Date/Time: 08/21/21 17:00 Narrative: This is a 70-year-old female with history of coronary artery disease, hypertension, hyperlipidemia, GERD, and diverticulitis who presented to the emergency department earlier today via EMS from home for evaluation of abdominal pain. She was wakened from sleep at approximately 02:00 a sharp pain in her right lower quadrant though she is now having discomfort diffusely throughout the abdomen. It has been cons
[2021-08-25] MEDS: FUROSEMIDE INJ 40 MG/4 ML VIAL IV PUSH (16:41)
[2021-08-25] MEDS: PRAVASTATIN SODIUM 20 MG TABLET 40 MG PO (21:15)
[2021-08-25] MEDS: CALCIUM CARBONATE (TUMS) 500 MG (200 MG ELEMENTAL) PO (21:15)
[2021-08-25] MEDS: MELATONIN 5 MG TABLET 10 MG PO (21:15)
[2021-08-26] VITALS (9 sets, daily range): BP systolic 117–138; BP diastolic 47–61; PULSE 83–90; RESP 18–22; TEMP 36.4–36.8; O2SAT 91–93
--- NOTE | 2021-08-26 | ECHO_ITS ---
Patient Info Name: Aline Ordaz Age: 70 years : 1950 Gender: Female Ht: 60 in Wt: 165 lbs BSA: 1.81 m2 HR: 79 bpm BP: 124 / 61 mmHg Heart Rhythm: Sinus Rhythm Technical Quality: Fair Exam Date: 08/26/2021 10:15 AM Exam Location: [facility] [place]: [facility] [place] Patient Status: Inpatient Admit Date: 08/21/2021 Staff Ordering Physician: Dilan Mckenna Assistant To The Ceo: Sumaya Valencia RDCS Attending Provider: Dilan Mckenna Exam Type: CA echo doppler color flow Study Info Complete two-dimensional, color flow and Doppler transthoracic echocardiogram is performed. Summary 1. Complete two-dimensional, color flow and Doppler transthoracic echocardiogram is performed. 2. There is moderate concentric increased left ventricular wall thickness. 3. Left ventricular systolic function is normal, estimated at 60-65%. 4. Left atrial chamber dimension is moderately enlarged. 5. There is moderate aortic valve sclerosis. 6. Leaflet separation is well maintained the valve does not appear to be stenotic. 7. The mitral valve annulus is moderately calcified. 8. There is no mitral valve regurgitation. Left Ventricle Left ventricular chamber dimension is normal. Left ventricular systolic function is normal, estimated at 60-65%. There is moderate concentric increased left ventricular wall thickness. The left ventricular diastolic function is grade I diastolic dysfunction. Right Ventricle Right ventricular chamber dimension is normal. Left Atria Left atrial chamber dimension is moderately enlarged. Right Atria Right atrial chamber dimension is normal. Aortic Valve The aortic valve is trileaflet. There is moderate aortic valve sclerosis. There is no aortic valve stenosis. Leaflet separation is well maintained the valve does not appear to be stenotic. Pulmonic Valve The pulmonic valve is not well visualized. Mitral Valve The mitral valve has normal leaflets. There is no mitral valve regurgitation. The mitral valve annulus is moderately calcified. Tricuspid Valve The tricuspid valve leaflets are normal. Pericardium/Pleural The pericardium appears normal. Aorta The aortic root size at the sinus of Valsalva is normal. Left Ventricular Outflow Tract Name Value Normal LVOT 2D LVOT Diameter 2.0 cm LVOT Doppler LVOT Peak Gradient 5 mmHg LVOT Mean Gradient 3 mmHg LVOT VTI 27 cm LVOT VTI/AV VTI Ratio 0.3 LVOT Stroke Volume 82 ml LVOT CO 15.7 l/min LVOT CI 8.6 l/min/m2 Pulmonic Valve Name Value Normal PV Doppler PV Peak Gradient 3 mmHg Mitral Valve
[2021-08-26] MEDS: metroNIDAZOLE 500 MG/ISO 100ML 500 MG/100 ML BAG 100 MG IVPB ×4 (00:24→17:29)
[2021-08-26 06:12] LABS: Basophils Percent Auto 0.4 % (0.2-1.2); Eosinophils Absolute Auto 0.1 K/mm3 (0-0.3); Eosinophils Percent Auto 2.1 % (0-4.4); Hematocrit 29.9 % (37.0-47.0); Hemoglobin 9.6 g/dL (12.0-15.0); Immature Granulocyte Absolute 0.03 K/mm3 (0.00-0.031); Immature Granulocyte Percent A 0.6 % (0-0.5); Lymphocytes Absolute Auto 1.05 K/mm3 (0.9-3.2); Lymphocytes Percent Auto 19.6 % (18.3-44.2); Mean Corpuscular HGB Conc 32.1 g/dl (32-36); Mean Corpuscular Hemoglobin 28.9 pg (26-34); Mean Corpuscular Volume 90.1 fl (80-100); Mean Platelet Volume 8.9 fl (7.4-10.4); Monocytes Absolute Auto 0.7 K/mm3 (0.1-0.6); Monocytes Percent Auto 13.6 % (2.6-8.5); Neutrophils Absolute Auto 3.4 K/mm3 (1.3-6.7); Neutrophils Percent Auto 63.7 % (45.5-73.1); Platelet Count Result 225 k/mm3 (150-375); Red Blood Count 3.32 M/mm3 (4.2-5.4); Red Cell Distribution Width 14.6 % (11.5-14.5); White Blood Count 5.4 K/mm3 (4.5-10.0)
[2021-08-26] MEDS: CALCIUM CARBONATE (TUMS) 500 MG (200 MG ELEMENTAL) PO (06:26)
[2021-08-26 06:28] LABS: Alanine Aminotransferase 27 U/L (4-35); Albumin Level 3.4 g/dL (3.5-5.1); Alkaline Phosphatase 82 U/L (38-126); Anion Gap 6 mmol/L (8-16); Aspartate Amino Transferase 28 U/L (14-36); Bilirubin,Total 0.2 mg/dL (0.2-1.3); Blood Urea Nitrogen 4 mg/dL (7-17); Calcium 8.7 mg/dL (8.4-10.2); Carbon Dioxide 30 mmol/L (22-30); Chloride 94 mmol/L (98-107); Estimated CRCL calculation 66 ml/min; Estimated Glomerular Filt Rate > 60; Glucose 114 mg/dL (65-110); Magnesium 1.6 mg/dL (1.6-2.3); Potassium 3.1 mmol/L (3.4-5.0); Sodium 130 mmol/L (137-145)
[2021-08-26] MEDS: ASCORBIC ACID 500 MG TABLET 1000 MG PO ×2 (08:45→17:29)
[2021-08-26] MEDS: MAGNESIUM SULF 4 GM/WATER100ML 4 GM/100 ML BAG IVPB (08:45)
[2021-08-26] MEDS: POTASSIUM CHLORIDE 20 MEQ TABLET 60 MEQ PO (08:45)
[2021-08-26] MEDS: amLODIPine BESYLATE 5 MG TABLET 10 MG PO (08:45)
[2021-08-26] MEDS: DICYCLOMINE HCL 10 MG CAPSULE 20 MG PO ×4 (08:46→20:55)
[2021-08-26] MEDS: CLOPIDOGREL BISULFATE 75 MG TABLET PO (08:46)
[2021-08-26] MEDS: buPROPion HCL SR (12HR) 100 MG TABCR PO ×2 (08:46→17:29)
[2021-08-26] MEDS: FLUoxetine HCL 20 MG CAPSULE 40 MG PO (08:46)
[2021-08-26] MEDS: CYCLOBENZAPRINE HCL 10 MG TABLET PO ×3 (08:46→17:29)
[2021-08-26] MEDS: ENOXAPARIN 40 MG/0.4 ML SYRINGE SUB-Q (08:46)
[2021-08-26] MEDS: METOPROLOL TARTRATE 25 MG TABLET PO ×2 (08:47→20:56)
[2021-08-26] MEDS: OPTI-GEN TAB 1 TABLET PO (08:47)
[2021-08-26] MEDS: MULTIVITAMINS THERAPEUTIC TAB (*BKC) 1 TABLET PO (08:47)
[2021-08-26] MEDS: PANTOPRAZOLE 40 MG TABLET PO (08:47)
[2021-08-26] MEDS: SIMETHICONE 80 MG TAB.CHEW PO ×3 (08:59→20:56)
[2021-08-26] MEDS: ALBUTEROL SULFATE (*SP) AEROSOL 1 PUFF 2 PUFF INHALATION ×3 (09:20→20:37)
[2021-08-26] MEDS: UMECLIDINIUM/VILANTEROL 62.5-25 MCG ELLIPTA 1 PUFF INHALATION (09:20)
[2021-08-26] MEDS: BUMETANIDE INJ 1 MG/4 ML VIAL IV PUSH (13:09)
--- NOTE | 2021-08-26 16:00 | P.PNIM_ITS ---
Progress Note: A&P Assessment and Plan (1) Colitis: Code(s): K52.9 - Noninfective gastroenteritis and colitis, unspecified Status: Acute Assessment and Plan: * presentation with right lower quadrant abdominal pain associated with nausea and vomiting * CT scan found to have evidence of colitis on imaging, presumably infectious. * Consider a repeat abdominal CT tomorrow if symptoms are still relevant * IV antibiotics:metronidazole and levofloxacin * Still complaining of pain * diarrhea has gotten better (2) Pneumonia: Qualifiers: Laterality: bilateral Lung location: lower lobe of lung Pneumonia type: due to unspecified organism Qualified Code(s): J18.9 - Pneumonia, unspecified organism Code(s): J18.9 - Pneumonia, unspecified organism Status: Acute Assessment and Plan: * CT of the abdomen and pelvis also showed patchy bilateral lower lobe pulmonary infiltrates * CT of the chest shows: 1. Diffuse lung disease with worsening from 07/29/2021, consistent with pneumonia 2. Moderate emphysema. * may very well be residual infiltrates seen on chest CTA on July 29, 2021 when she was admitted for COVID * Albuterol * Will need outpatient PFTs * Supplemental oxygen * Maintain saturations greater than 94% (3) Hypoxia: Code(s): R09.02 - Hypoxemia Status: Acute Assessment and Plan: * Chronic * Home O2 of 2LNC * Will probably need a walk test prior to leaving * See above (4) Hypertension: Code(s): I10 - Essential (primary) hypertension Status: Acute Assessment and Plan: * BP stable, current 138/61 * Continue home medications (Decrease)amlodipine 5mg PO Daily, metoprolol 25mg PO Q12hr * Trend BP * Adjust medications as needed (5) Hyperlipidemia: Code(s): E78.5 - Hyperlipidemia, unspecified Status: Chronic Assessment and Plan: * Continue home pravastatin 40mg PO HS (6) Gastroesophageal reflux disease: Code(s): K21.9 - Gastro-esophageal reflux disease without esophagitis Status: Acute Assessment and Plan: * Takes omeprazole at home * Change to protonix while in the hospital (7) Emphysema/COPD: Code(s): J43.9 - Emphysema, unspecified Status: Acute Assessment and Plan: * Found on chest CT * Probably needs to be started on inhalers * Will try put patient on Anoro Ellipta and albuterol inhaler * Needs PFTs * Should follow up with Pulmonary at [place] * Consider chest CT if still really short of breath (8) Fluid overload: Code(s): E87.70 - Fluid overload, unspecified Status: Acute Assessment and Plan: * Chest xray 1: Extensive bilateral airspace disease which may represent edema or pneumonia. Bandlike consolidation mid thoraces, possibly superimposed atelectasis. * BNP 333 * Echo- EF 60-65% with grade 1 diastolic dysfunction * 40 mg IV Lasix 1 time (9) Hypomagnesemia: Code(s): E83.42 - Hypomagnesemia Status: Acute Assessment and Plan: * mg 1.6 * Replaced with 4gm * Trend * replace as needed (10) Hypokalemia: Code(s): E87.6 - Hypokalemia Status: Acute Assessment and Plan: * K 3.1 * replaced with 30 * Trend Time Spent With Patient Time with patient: Greater than 35 minutes
--- NOTE | 2021-08-26 16:00 | PM.IMPN ---
Progress Note: A&P Assessment and Plan (1) Colitis: Code(s): K52.9 - Noninfective gastroenteritis and colitis, unspecified Status: Acute Assessment and Plan: presentation with right lower quadrant abdominal pain associated with nausea and vomiting CT scan found to have evidence of colitis on imaging, presumably infectious. Consider a repeat abdominal CT tomorrow if symptoms are still relevant IV antibiotics:metronidazole and levofloxacin Still complaining of pain diarrhea has gotten better (2) Pneumonia: Qualifiers: Laterality: bilateral Lung location: lower lobe of lung Pneumonia type: due to unspecified organism Qualified Code(s): J18.9 - Pneumonia, unspecified organism Code(s): J18.9 - Pneumonia, unspecified organism Status: Acute Assessment and Plan: CT of the abdomen and pelvis also showed patchy bilateral lower lobe pulmonary infiltrates CT of the chest shows: 1. Diffuse lung disease with worsening from 07/29/2021, consistent with pneumonia 2. Moderate emphysema. may very well be residual infiltrates seen on chest CTA on July 29, 2021 when she was admitted for COVID Albuterol Will need outpatient PFTs Supplemental oxygen Maintain saturations greater than 94% (3) Hypoxia: Code(s): R09.02 - Hypoxemia Status: Acute Assessment and Plan: Chronic Home O2 of 2LNC Will probably need a walk test prior to leaving See above (4) Hypertension: Code(s): I10 - Essential (primary) hypertension Status: Acute Assessment and Plan: BP stable, current 138/61 Continue home medications (Decrease)amlodipine 5mg PO Daily, metoprolol 25mg PO Q12hr Trend BP Adjust medications as needed (5) Hyperlipidemia: Code(s): E78.5 - Hyperlipidemia, unspecified Status: Chronic Assessment and Plan: Continue home pravastatin 40mg PO HS (6) Gastroesophageal reflux disease: Code(s): K21.9 - Gastro-esophageal reflux disease without esophagitis Status: Acute Assessment and Plan: Takes omeprazole at home Change to protonix while in the hospital (7) Emphysema/COPD: Code(s): J43.9 - Emphysema, unspecified Status: Acute Assessment and Plan: Found on chest CT Probably needs to be started on inhalers Will try put patient on Anoro Ellipta and albuterol inhaler Needs PFTs Should follow up with Pulmonary at [place] Consider chest CT if still really short of breath (8) Fluid overload: Code(s): E87.70 - Fluid overload, unspecified Status: Acute Assessment and Plan: Chest xray 1: Extensive bilateral airspace disease which may represent edema or pneumonia. Bandlike consolidation mid thoraces, possibly superimposed atelectasis. BNP 333 Echo- EF 60-65% with grade 1 diastolic dysfunction 40 mg IV Lasix 1 time (9) Hypomagnesemia: Code(s): E83.42 - Hypomagnesemia Status: Acute Assessment and Plan: mg 1.6 Replaced with 4gm Trend replace as needed (10) Hypokalemia: Code(s): E87.6 - Hypokalemia Status: Acute Assessment and Plan: K 3.1 replaced with 30 Trend Time Spent With Patient Time with patient: Greater than 35 minutes Subjective Date/time seen: 08/26/21 16:00 Interval history: Date/Time: 08/21/21 17:00 Narrative: This is a 70-year-old female with history of coronary artery disease, hypertension, hyperlipidemia, GERD, and diverticulitis who presented to the emergency department earlier today via EMS from home for evaluation of abdominal pain. She was wakened from sleep at approximately 02:00 a sharp pain in her right lower quadrant though she is now having discomfort diffusely throughout the abdomen. It has been constant since the beginning and [place] x2 provided her with no significant relief; she has not found any significant mike
[2021-08-26] MEDS: ALBUTEROL SULFATE NEB 2.5 MG/0.5 ML INH INHALATION (16:09)
[2021-08-26] MEDS: polyethylene glycoL 3350 17 GM POWD.PACK PO (17:29)
[2021-08-26] MEDS: PRAVASTATIN SODIUM 20 MG TABLET 40 MG PO (20:54)
[2021-08-26] MEDS: MELATONIN 5 MG TABLET 10 MG PO (20:55)
[2021-08-27] VITALS (13 sets, daily range): BP systolic 109–132; BP diastolic 51–74; PULSE 74–109; RESP 18–26; TEMP 36.2–36.4; O2SAT 85–94
[2021-08-27] MEDS: metroNIDAZOLE 500 MG/ISO 100ML 500 MG/100 ML BAG 100 MG IVPB ×2 (01:05→06:07)
[2021-08-27] MEDS: buPROPion HCL SR (12HR) 100 MG TABCR PO ×2 (08:11→16:18)
[2021-08-27] MEDS: ENOXAPARIN 40 MG/0.4 ML SYRINGE SUB-Q (08:11)
[2021-08-27] MEDS: FLUoxetine HCL 20 MG CAPSULE 40 MG PO (08:11)
[2021-08-27] MEDS: OPTI-GEN TAB 1 TABLET PO (08:11)
[2021-08-27] MEDS: CYCLOBENZAPRINE HCL 10 MG TABLET PO ×3 (08:11→16:17)
[2021-08-27] MEDS: polyethylene glycoL 3350 17 GM POWD.PACK PO (08:11)
[2021-08-27] MEDS: PANTOPRAZOLE 40 MG TABLET PO (08:11)
[2021-08-27] MEDS: METOPROLOL TARTRATE 25 MG TABLET PO ×2 (08:11→22:21)
[2021-08-27] MEDS: CLOPIDOGREL BISULFATE 75 MG TABLET PO (08:11)
[2021-08-27] MEDS: MULTIVITAMINS THERAPEUTIC TAB (*BKC) 1 TABLET PO (08:11)
[2021-08-27] MEDS: DICYCLOMINE HCL 10 MG CAPSULE 20 MG PO ×4 (08:12→22:10)
[2021-08-27] MEDS: ASCORBIC ACID 500 MG TABLET 1000 MG PO ×2 (08:12→16:18)
[2021-08-27] MEDS: SIMETHICONE 80 MG TAB.CHEW PO ×3 (08:12→22:11)
[2021-08-27] MEDS: UMECLIDINIUM/VILANTEROL 62.5-25 MCG ELLIPTA 1 PUFF INHALATION (08:32)
[2021-08-27] MEDS: ALBUTEROL SULFATE (*SP) AEROSOL 1 PUFF 2 PUFF INHALATION ×3 (08:35→21:14)
[2021-08-27] MEDS: amLODIPine BESYLATE 5 MG TABLET PO (09:08)
--- NOTE | 2021-08-27 10:00 | PCAUD ---
attempted to restart IV pt refusing IV restart DORCAS Fisher notified
[2021-08-27 10:06] LABS: Basophils Percent Auto 0.3 % (0.2-1.2); Eosinophils Absolute Auto 0.1 K/mm3 (0-0.3); Eosinophils Percent Auto 1.1 % (0-4.4); Hematocrit 28.9 % (37.0-47.0); Hemoglobin 9.3 g/dL (12.0-15.0); Immature Granulocyte Absolute 0.05 K/mm3 (0.00-0.031); Immature Granulocyte Percent A 0.7 % (0-0.5); Lymphocytes Absolute Auto 0.95 K/mm3 (0.9-3.2); Mean Corpuscular HGB Conc 32.2 g/dl (32-36); Mean Corpuscular Hemoglobin 29.5 pg (26-34); Mean Corpuscular Volume 91.7 fl (80-100); Mean Platelet Volume 9.1 fl (7.4-10.4); Monocytes Absolute Auto 0.8 K/mm3 (0.1-0.6); Monocytes Percent Auto 10.8 % (2.6-8.5); Neutrophils Absolute Auto 5.4 K/mm3 (1.3-6.7); Neutrophils Percent Auto 74.1 % (45.5-73.1); Platelet Count Result 254 k/mm3 (150-375); Red Blood Count 3.15 M/mm3 (4.2-5.4); Red Cell Distribution Width 14.8 % (11.5-14.5); White Blood Count 7.3 K/mm3 (4.5-10.0)
[2021-08-27 10:11] LABS: Alanine Aminotransferase 24 U/L (4-35); Albumin Level 3.3 g/dL (3.5-5.1); Alkaline Phosphatase 83 U/L (38-126); Anion Gap 7 mmol/L (8-16); Aspartate Amino Transferase 24 U/L (14-36); Bilirubin,Total 0.2 mg/dL (0.2-1.3); Blood Urea Nitrogen 3 mg/dL (7-17); Calcium 8.5 mg/dL (8.4-10.2); Carbon Dioxide 27 mmol/L (22-30); Chloride 94 mmol/L (98-107); Estimated CRCL calculation 66 ml/min; Estimated Glomerular Filt Rate > 60; Glucose 144 mg/dL (65-110); Magnesium 1.8 mg/dL (1.6-2.3); Potassium 3.6 mmol/L (3.4-5.0); Sodium 128 mmol/L (137-145)
[2021-08-27 10:19] LABS: NT Pro B Type Natriuretic Pept 204 pg/mL (5-100)
[2021-08-27] MEDS: BISACODYL 5 MG TABLET EC PO (12:22)
[2021-08-27] MEDS: metroNIDAZOLE 250 MG TABLET 500 MG PO ×3 (12:35→22:22)
--- NOTE | 2021-08-27 13:11 | PCAUD ---
Pt started on PO flagyl and levofloxcin this shift.
[2021-08-27] MEDS: BUMETANIDE 1 MG TABLET PO (14:24)
[2021-08-27] MEDS: predniSONE 40 MG, predniSONE 10 MG 50 MG PO (14:33)
--- NOTE | 2021-08-27 15:32 | P.PNIM_ITS ---
Progress Note: A&P Assessment and Plan (1) Colitis: Code(s): K52.9 - Noninfective gastroenteritis and colitis, unspecified Status: Acute Assessment and Plan: * presentation with right lower quadrant abdominal pain associated with nausea and vomiting * CT scan found to have evidence of colitis on imaging, presumably infectious. * Consider a repeat abdominal CT tomorrow if symptoms are still relevant * IV antibiotics:metronidazole and levofloxacin * Still complaining of pain * diarrhea has gotten better (2) Pneumonia: Qualifiers: Laterality: bilateral Lung location: lower lobe of lung Pneumonia type: due to unspecified organism Qualified Code(s): J18.9 - Pneumonia, unspecified organism Code(s): J18.9 - Pneumonia, unspecified organism Status: Acute Assessment and Plan: * CT of the abdomen and pelvis also showed patchy bilateral lower lobe pulmonary infiltrates * CT of the chest shows: 1. Diffuse lung disease with worsening from 07/29/2021, consistent with pneumonia 2. Moderate emphysema. * may very well be residual infiltrates seen on chest CTA on July 29, 2021 when she was admitted for COVID * Albuterol * Will need outpatient PFTs * Supplemental oxygen * Maintain saturations greater than 94% * Sputum culture shows yeast and gram positive bacilli * Repeat chest abdomen and pelvis * Differentials HCAP vs PNA superimposed by colitis vs covid reinfection * covid PCR * flu PCR * Levaquin, Flagyl, and Vanc * Pulm consult thank you for your help (3) Hypoxia: Code(s): R09.02 - Hypoxemia Status: Acute Assessment and Plan: * Chronic * Home O2 of 2LNC * Will probably need a walk test prior to leaving * See above (4) Hypertension: Code(s): I10 - Essential (primary) hypertension Status: Acute Assessment and Plan: * BP stable, current 128/38 * Continue home medications (Decrease)amlodipine 5mg PO Daily, metoprolol 25mg PO Q12hr * Trend BP * Adjust medications as needed (5) Hyperlipidemia: Code(s): E78.5 - Hyperlipidemia, unspecified Status: Chronic Assessment and Plan: * Continue home pravastatin 40mg PO HS (6) Gastroesophageal reflux disease: Code(s): K21.9 - Gastro-esophageal reflux disease without esophagitis Status: Acute Assessment and Plan: * Takes omeprazole at home * Change to protonix while in the hospital (7) Emphysema/COPD: Code(s): J43.9 - Emphysema, unspecified Status: Acute Assessment and Plan: * Found on chest CT * Probably needs to be started on inhalers * Will try put patient on Anoro Ellipta and albuterol inhaler * Needs PFTs * Should follow up with Pulmonary at [place] * Consider chest CT if still really short of breath (8) Fluid overload: Code(s): E87.70 - Fluid overload, unspecified Status: Acute Assessment and Plan: * Chest xray 1: Extensive bilateral airspace disease which may represent edema or pneumonia. Bandlike consolidation mid thoraces, possibly superimposed atelectasis. * BNP 204 * Echo- EF 60-65% with grade 1 diastolic dysfunction * Bumex x 1 (9) Hypomagnesemia: Code(s): E83.42 - Hypomagnesemia Status: Acute Assessment and Plan: * mg 1.8 * Trend * replace as needed (10) Hyp
--- NOTE | 2021-08-27 15:32 | PM.IMPN ---
Progress Note: A&P Assessment and Plan (1) Colitis: Code(s): K52.9 - Noninfective gastroenteritis and colitis, unspecified Status: Acute Assessment and Plan: presentation with right lower quadrant abdominal pain associated with nausea and vomiting CT scan found to have evidence of colitis on imaging, presumably infectious. Consider a repeat abdominal CT tomorrow if symptoms are still relevant IV antibiotics:metronidazole and levofloxacin Still complaining of pain diarrhea has gotten better (2) Pneumonia: Qualifiers: Laterality: bilateral Lung location: lower lobe of lung Pneumonia type: due to unspecified organism Qualified Code(s): J18.9 - Pneumonia, unspecified organism Code(s): J18.9 - Pneumonia, unspecified organism Status: Acute Assessment and Plan: CT of the abdomen and pelvis also showed patchy bilateral lower lobe pulmonary infiltrates CT of the chest shows: 1. Diffuse lung disease with worsening from 07/29/2021, consistent with pneumonia 2. Moderate emphysema. may very well be residual infiltrates seen on chest CTA on July 29, 2021 when she was admitted for COVID Albuterol Will need outpatient PFTs Supplemental oxygen Maintain saturations greater than 94% Sputum culture shows yeast and gram positive bacilli Repeat chest abdomen and pelvis Differentials HCAP vs PNA superimposed by colitis vs covid reinfection covid PCR flu PCR Levaquin, Flagyl, and Vanc Pulm consult thank you for your help (3) Hypoxia: Code(s): R09.02 - Hypoxemia Status: Acute Assessment and Plan: Chronic Home O2 of 2LNC Will probably need a walk test prior to leaving See above (4) Hypertension: Code(s): I10 - Essential (primary) hypertension Status: Acute Assessment and Plan: BP stable, current 128/38 Continue home medications (Decrease)amlodipine 5mg PO Daily, metoprolol 25mg PO Q12hr Trend BP Adjust medications as needed (5) Hyperlipidemia: Code(s): E78.5 - Hyperlipidemia, unspecified Status: Chronic Assessment and Plan: Continue home pravastatin 40mg PO HS (6) Gastroesophageal reflux disease: Code(s): K21.9 - Gastro-esophageal reflux disease without esophagitis Status: Acute Assessment and Plan: Takes omeprazole at home Change to protonix while in the hospital (7) Emphysema/COPD: Code(s): J43.9 - Emphysema, unspecified Status: Acute Assessment and Plan: Found on chest CT Probably needs to be started on inhalers Will try put patient on Anoro Ellipta and albuterol inhaler Needs PFTs Should follow up with Pulmonary at [place] Consider chest CT if still really short of breath (8) Fluid overload: Code(s): E87.70 - Fluid overload, unspecified Status: Acute Assessment and Plan: Chest xray 1: Extensive bilateral airspace disease which may represent edema or pneumonia. Bandlike consolidation mid thoraces, possibly superimposed atelectasis. BNP 204 Echo- EF 60-65% with grade 1 diastolic dysfunction Bumex x 1 (9) Hypomagnesemia: Code(s): E83.42 - Hypomagnesemia Status: Acute Assessment and Plan: mg 1.8 Trend replace as needed (10) Hypokalemia: Code(s): E87.6 - Hypokalemia Status: Acute Assessment and Plan: K 3.6 Trend Replace as needed (11) Constipation: Code(s): K59.00 - Constipation, unspecified Status: Acute Assessment and Plan: Miralax increase to BID add Colace One time of bisacodyl 5mg PO once Simethicone for gas (12) Shortness of breath: Code(s): R06.02 - Shortness of breath Status: Acute Assessment and Plan: Possibly residual covid vs superimposed PNA from abd infection vs HCAP See above (13) Abnormal chest CT: [place]
[2021-08-27] MEDS: ALBUTEROL SULFATE NEB 2.5 MG/0.5 ML INH INHALATION (15:41)
[2021-08-27] MEDS: levoFLOXacin 750 MG TABLET PO (17:09)
--- NOTE | 2021-08-27 18:47 | PCAUD ---
Md Gonzales called regarding family request for transfer to [place] this shift. informed this nurse no beds available in this area currently. Informed family Veto Mckenna UI UX DEVELOPER will update family tomorrow.
--- NOTE | 2021-08-27 19:10 | PM.EVENT ---
Event Note Event Note Event Note: I was called at around 6:48 p.m. from bedside nurse request to call family as they had concerns for the patient's increased demand in oxygen from 2 L to 4 L IV called Carly her daughter and had a brief talk over the phone and discussed latest findings. Carly states that her mom does not want to be on a ventilator. But wishes her mom to be transferred out to [place]. I inform her that there are no beds available at this time and need for higher level of care is not necessary at this time and gel cap insistent that he moaned to be transferred out as she questions treatment for colitis pneumonia and increased in oxygen demands.
[2021-08-27] MEDS: LORazepam INJ (*CRX) 2 MG/ML VIAL 0.5 MG IM (21:35)
[2021-08-27 22:18] LABS: Alveolar/Arterial O2 Gradient 209.8 mmHg; Base Excess ABG 1.5 mEq/l (+/-2.0); Fractional Inspired Oxygen 40 %; HCO3 ABG 22.8 mEq/l (22.0-26.0); Oxygen Content ABG 13.6 %vol (16.0-22.0); Oxygen Saturation ABG 88.1 % (95.0-100.0); Oxyhemoglobin 83.7 % THb (90.0-100.0); PO2 FiO2 Ratio Arterial Blood 1.14 %; Total Hemoglobin 11.6 g/dL (12.0-18.0)
[2021-08-27] MEDS: MELATONIN 5 MG TABLET 10 MG PO (22:19)
[2021-08-27 22:21] LABS: Modified Allen's Test Pass; PO2 ABG 45.5 mmHg (80.0-100.0); Site Drawn LEFT RADIAL
[2021-08-27 22:22] LABS: Device NASAL CANNULA
[2021-08-27] MEDS: PRAVASTATIN SODIUM 20 MG TABLET 40 MG PO (22:23)
--- NOTE | 2021-08-27 22:35 | P.PNCROSS_ITS ---
Event Note Event Note Event Note: I spoke with her daughter in a cold multiple times concerning a transferred to [facility]. The daughter in a cold told me that they have a relative Prosper saenz who has found a physician at [facility] that will accept her and has a bed for her. I called [facility] bed request at [phone] and I spoke with [place] concerning transferring the patient. At this time I was instructed that they do not have any medical bed. I stated that the family told me that they have accepting physician and a bed. However I was instructed that the Prosper saenz is in ER physician and does not have admitting privileges. I did obtain some ABGs in spoke with her nurse lEinor Clement and instructed her to increase the oxygen to Keep O2 saturation over 94%. the patient and her daughter Thi stated that the patient wants to be a full code. In the event that the patient is requiring more oxygen then medical floor can maintain then we will move her to either IMU or ICU if need be.
[2021-08-27] MEDS: MORPHINE SULFATE (*CRX) 2 MG/ML INJ IV PUSH (22:42)
--- NOTE | 2021-08-27 23:18 | PM.EVENT ---
Event Note Event Note Event Note: I spoke with the patient concerning her treatment here and to assess the patient. Her o2 sats were in the 70 percent. Her connection to the o2 bottle was not connected to the oxygen on the wall. She was connected and respiratory was called to assist with the set up. The patient's oxygen level came up to 94% when she was seen by respiratory and the O2 connections were changed.
[2021-08-28] VITALS (13 sets, daily range): BP systolic 116–153; BP diastolic 38–61; PULSE 88–101; RESP 18–26; TEMP 35.9–36.6; O2SAT 85–95
--- NOTE | 2021-08-28 03:42 | PC.NURSE ---
08/27/211999 Pt o2 sat found to be 85% on 2.5L. Pt anxious hands mildly shakey. Went to turn the the oxygen up & the patient was upset not wanting O2 t0 be turned above 3L. Pt told we could try but we needed to get her to 90% or over. Turned O2 up to4L which brought her up to 88% Pt asked for something for anxiety. Tammy notified najma 2019 of pt request for anxiety med & of o2 sat & increase of oxygen to 6L at this time bringing sat to89-90% Order put in for ativan X1 & Pt kept on continuous pulse ox. Pts Sister Thi called as order was put in Wanted to know when the patient was going to be tranfered to [facility]. She stated that they had found an accepting Dr at [facility] & wanted to transfered there as quickly as possible & she wanted to speak with the m[address] Dr about it. Explained to Thi that there could be a delay in response from the Dr & if so would she like to talk to the [employer] supervisor. She was agreeable to this. Notified ERIN Goncalves of the situation then Tammy Juárez notified & given Brandan phone #. Tammy agreed to call. Najma 30min later Tammy called back & stated she had talked to Thi & took the name of the DR.Thi said would accept the Pt at [facility]. Tammy found that this was an ER Dr that wasn't on duty at the time & couldn't act as a House Dr taking over care of the Pt. She stated she was putting in orders to keep the patients sats up 94% that the ABGs showed no C02 retention. Pt placed on High flow cannula at 10L. Alisha was called from Repiratory to check on limited improvement on sat. new bubbler was obtained & sat came up to 94%
[2021-08-28] MEDS: metroNIDAZOLE 250 MG TABLET 500 MG PO (05:21)
--- NOTE | 2021-08-28 06:45 | PM.IMPN ---
Progress Note: A&P Assessment and Plan (1) Pneumonia: Qualifiers: Laterality: bilateral Lung location: lower lobe of lung Pneumonia type: due to unspecified organism Qualified Code(s): J18.9 - Pneumonia, unspecified organism Code(s): J18.9 - Pneumonia, unspecified organism Status: Acute Assessment and Plan: CT of the chest/abd/pel shows: Extensive patchy bilateral interstitial infiltrates, worse since 08/22/2021, consistent with worsening bilateral pneumonia Albuterol nebs Supplemental oxygen- wean to maintain saturations greater than 94% Sputum culture shows yeast and gram positive bacilli-which is listed as normal linda Differentials HCAP vs PNA superimposed by colitis vs covid reinfection covid PCR- pending flu PCR-negative Levaquin, Cefepime, and Vanc Pulm consult thank you for your help Changed prednisone to methylprednisone 60mg IV Q6hr Start remdesivir and give actamera Inflammatory marker labs ordered Transfer to IMU for further management Transfer to [facility] per family request. (2) Hypoxia: Code(s): R09.02 - Hypoxemia Status: Acute Assessment and Plan: Chronic home O2 of 2LNC Current increase of oxygen demand Continuous Pulsox ABG- pH 7.560, CO2 26.0, pO2 45.5, O2 sat 88.1 (08/27/21) Repeat ABG Will probably need a walk test prior to leaving See above (3) Hypertension: Code(s): I10 - Essential (primary) hypertension Status: Acute Assessment and Plan: BP stable, current BP was reported verbally low Hold home medications (Decrease)amlodipine 5mg PO Daily, metoprolol 25mg PO Q12hr, at this time Trend BP Adjust medications as needed (4) Hyperlipidemia: Code(s): E78.5 - Hyperlipidemia, unspecified Status: Chronic Assessment and Plan: Continue home pravastatin 40mg PO HS (5) Gastroesophageal reflux disease: Code(s): K21.9 - Gastro-esophageal reflux disease without esophagitis Status: Acute Assessment and Plan: Takes omeprazole at home Change to protonix while in the hospital (6) Emphysema/COPD: Code(s): J43.9 - Emphysema, unspecified Status: Acute Assessment and Plan: Found on chest CT Probably needs to be started on inhalers Will try put patient on Anoro Ellipta and albuterol inhaler Needs PFTs Should follow up with Pulmonary at [place] Consider chest CT if still really short of breath (7) Fluid overload: Code(s): E87.70 - Fluid overload, unspecified Status: Acute Assessment and Plan: Chest xray Stable diffuse lung disease, consistent with pneumonia and/or pulmonary edema and/or acute respiratory distress syndrome (ARDS). BNP this am 433 Echo- EF 60-65% with grade 1 diastolic dysfunction 40mg IV lasix x1 Strict I&O Urinary catheter (8) Hypomagnesemia: Code(s): E83.42 - Hypomagnesemia Status: Acute Assessment and Plan: mg 1.8 Trend replace as needed (9) Hypokalemia: Code(s): E87.6 - Hypokalemia Status: Acute Assessment and Plan: K 3.4 40mcq once PO, since she is getting Lasix Trend Replace as needed (10) Constipation: Code(s): K59.00 - Constipation, unspecified Status: Acute Assessment and Plan: Miralax increase to BID add Colace One time of bisacodyl 5mg PO once Simethicone for gas (11) Shortness of breath: Code(s): R06.02 - Shortness of breath Status: Acute Assessment and Plan: Possibly residual covid vs superimposed PNA from abd infection vs HCAP See above (12) Abnormal chest CT: Code(s): R93.89 - Abnormal findings on diagnostic imaging of other specified body structures Status: Acute Assessment and Plan: Worsening PNA repeat CT of chest abdomen pelvis (13) Colitis: Code(s):
--- NOTE | 2021-08-28 06:45 | P.PNIM_ITS ---
Progress Note: A&P Assessment and Plan (1) Pneumonia: Qualifiers: Laterality: bilateral Lung location: lower lobe of lung Pneumonia type: due to unspecified organism Qualified Code(s): J18.9 - Pneumonia, unspecified organism Code(s): J18.9 - Pneumonia, unspecified organism Status: Acute Assessment and Plan: * CT of the chest/abd/pel shows: Extensive patchy bilateral interstitial infiltrates, worse since 08/22/2021, consistent with worsening bilateral pneumonia * Albuterol nebs * Supplemental oxygen- wean to maintain saturations greater than 94% * Sputum culture shows yeast and gram positive bacilli-which is listed as normal linda * Differentials HCAP vs PNA superimposed by colitis vs covid reinfection * covid PCR- pending * flu PCR-negative * Levaquin, Cefepime, and Vanc * Pulm consult thank you for your help * Changed prednisone to methylprednisone 60mg IV Q6hr * Start remdesivir and give actamera * Inflammatory marker labs ordered * Transfer to IMU for further management * Transfer to [facility] per family request. (2) Hypoxia: Code(s): R09.02 - Hypoxemia Status: Acute Assessment and Plan: * Chronic home O2 of 2LNC * Current increase of oxygen demand * Continuous Pulsox * ABG- pH 7.560, CO2 26.0, pO2 45.5, O2 sat 88.1 (08/27/21) * Repeat ABG * Will probably need a walk test prior to leaving * See above (3) Hypertension: Code(s): I10 - Essential (primary) hypertension Status: Acute Assessment and Plan: * BP stable, current BP was reported verbally low * Hold home medications (Decrease)amlodipine 5mg PO Daily, metoprolol 25mg PO Q12hr, at this time * Trend BP * Adjust medications as needed (4) Hyperlipidemia: Code(s): E78.5 - Hyperlipidemia, unspecified Status: Chronic Assessment and Plan: * Continue home pravastatin 40mg PO HS (5) Gastroesophageal reflux disease: Code(s): K21.9 - Gastro-esophageal reflux disease without esophagitis Status: Acute Assessment and Plan: * Takes omeprazole at home * Change to protonix while in the hospital (6) Emphysema/COPD: Code(s): J43.9 - Emphysema, unspecified Status: Acute Assessment and Plan: * Found on chest CT * Probably needs to be started on inhalers * Will try put patient on Anoro Ellipta and albuterol inhaler * Needs PFTs * Should follow up with Pulmonary at [place] * Consider chest CT if still really short of breath (7) Fluid overload: Code(s): E87.70 - Fluid overload, unspecified Status: Acute Assessment and Plan: * Chest xray Stable diffuse lung disease, consistent with pneumonia and/or pulmonary edema and/or acute respiratory distress syndrome (ARDS). * BNP this am 433 * Echo- EF 60-65% with grade 1 diastolic dysfunction * 40mg IV lasix x1 * Strict I&O * Urinary catheter (8) Hypomagnesemia: Code(s): E83.42 - Hypomagnesemia Status: Acute Assessment and Plan: * mg 1.8 * Trend * replace as needed (9) Hypokalemia: Code(s): E87.6 - Hypokalemia Status: Acute Assessment and Plan: * K 3.4 * 40mcq once PO, since she is getting Lasix * Trend * Replace as needed (10) Constipation: Code(s): K59.00 - Constipation, unspecified
[2021-08-28] MEDS: FUROSEMIDE INJ 40 MG/4 ML VIAL IV PUSH (07:54)
[2021-08-28] MEDS: LORazepam INJ (*CRX) 2 MG/ML VIAL 0.25 MG IV PUSH (07:56)
[2021-08-28] MEDS: HYDROcodone/acetaminophen (*CRX) 7.5-325 MG TABLET 1 TAB PO ×2 (08:13→16:03)
[2021-08-28] MEDS: SIMETHICONE 80 MG TAB.CHEW PO (08:16)
[2021-08-28] MEDS: ASCORBIC ACID 500 MG TABLET 1000 MG PO (08:17)
[2021-08-28] MEDS: CYCLOBENZAPRINE HCL 10 MG TABLET PO ×3 (08:17→18:32)
[2021-08-28] MEDS: CLOPIDOGREL BISULFATE 75 MG TABLET PO (08:17)
[2021-08-28] MEDS: MULTIVITAMINS THERAPEUTIC TAB (*BKC) 1 TABLET PO (08:17)
[2021-08-28] MEDS: OPTI-GEN TAB 1 TABLET PO (08:17)
[2021-08-28] MEDS: FLUoxetine HCL 20 MG CAPSULE 40 MG PO (08:17)
[2021-08-28] MEDS: DICYCLOMINE HCL 10 MG CAPSULE 20 MG PO (08:17)
[2021-08-28] MEDS: PANTOPRAZOLE 40 MG TABLET PO (08:19)
[2021-08-28 08:20] LABS: Basophils Percent Auto 0.2 % (0.2-1.2); Eosinophils Absolute Auto 0.3 K/mm3 (0-0.3); Eosinophils Percent Auto 2.6 % (0-4.4); Hematocrit 32.1 % (37.0-47.0); Hemoglobin 10.5 g/dL (12.0-15.0); Immature Granulocyte Absolute 0.11 K/mm3 (0.00-0.031); Immature Granulocyte Percent A 1.1 % (0-0.5); Lymphocytes Absolute Auto 0.91 K/mm3 (0.9-3.2); Lymphocytes Percent Auto 9.3 % (18.3-44.2); Mean Corpuscular HGB Conc 32.7 g/dl (32-36); Mean Corpuscular Hemoglobin 29.6 pg (26-34); Mean Corpuscular Volume 90.4 fl (80-100); Mean Platelet Volume 9.2 fl (7.4-10.4); Monocytes Absolute Auto 0.8 K/mm3 (0.1-0.6); Monocytes Percent Auto 8.5 % (2.6-8.5); Neutrophils Absolute Auto 7.7 K/mm3 (1.3-6.7); Neutrophils Percent Auto 78.3 % (45.5-73.1); Nucleated Red Blood Cells Perc 0.2 % (0.0-0.2); Platelet Count Result 330 k/mm3 (150-375); Red Blood Count 3.55 M/mm3 (4.2-5.4); Red Cell Distribution Width 14.6 % (11.5-14.5); White Blood Count 9.8 K/mm3 (4.5-10.0)
[2021-08-28] MEDS: ENOXAPARIN 40 MG/0.4 ML SYRINGE SUB-Q (08:20)
[2021-08-28] MEDS: ALBUTEROL SULFATE (*SP) AEROSOL 1 PUFF 2 PUFF INHALATION ×3 (08:28→20:49)
[2021-08-28] MEDS: UMECLIDINIUM/VILANTEROL 62.5-25 MCG ELLIPTA 1 PUFF INHALATION (08:29)
[2021-08-28 08:40] LABS: NT Pro B Type Natriuretic Pept 433 pg/mL (5-100)
[2021-08-28 08:41] LABS: Lactic Acid Reflex 1.2 mmol/L (0.7-2.1)
[2021-08-28 08:46] LABS: Alanine Aminotransferase 24 U/L (4-35); Albumin Level 3.8 g/dL (3.5-5.1); Alkaline Phosphatase 96 U/L (38-126); Anion Gap 13 mmol/L (8-16); Aspartate Amino Transferase 24 U/L (14-36); Bilirubin,Total 0.5 mg/dL (0.2-1.3); Blood Urea Nitrogen 5 mg/dL (7-17); Calcium 9.1 mg/dL (8.4-10.2); Carbon Dioxide 26 mmol/L (22-30); Chloride 91 mmol/L (98-107); Estimated CRCL calculation 66 ml/min; Estimated Glomerular Filt Rate > 60; Glucose 115 mg/dL (65-110); Potassium 3.4 mmol/L (3.4-5.0); Sodium 130 mmol/L (137-145)
[2021-08-28 08:57] LABS: Add Urine Microscopic? YES; Appearance Urine Clear (Clear); Bilirubin Urine Negative (Negative); Blood Urine Negative (Negative); Color Urine Yellow (Yellow); Glucose Urine UA Negative (Negative); Ketones Urine Trace mg/dL (Negative); Leukocyte Esterase Ur Negative LEU/UL (Negative); Nitrate Urine Negative (Negative); Protein Urine Negative (Negative); RBC Urine 0-2 /hpf (0-2); Squamous Epithelial Cell Urine Rare /hpf (Few); Urobilinogen Urine Negative mg/dL (<2.0); WBC Urine 0-3 /hpf
[2021-08-28] MEDS: polyethylene glycoL 3350 17 GM POWD.PACK PO (09:33)
[2021-08-28] MEDS: DOCUSATE SODIUM 100 MG CAPSULE PO (09:33)
[2021-08-28] MEDS: buPROPion HCL SR (12HR) 100 MG TABCR PO (09:33)
[2021-08-28 09:48] LABS: Influenza Control Positive
[2021-08-28 11:07] LABS: INR 1.5; Prothrombin Time 18.2 Seconds (11.1-14.7)
[2021-08-28 11:08] LABS: Alanine Aminotransferase 22 U/L (4-35); Estimated CRCL calculation 66 ml/min; Estimated Glomerular Filt Rate > 60; INR 1.5; Prothrombin Time 18.1 Seconds (11.1-14.7)
[2021-08-28 11:09] LABS: Partial Thromboplastin Time 37.4 SECONDS (22.3-36.8)
[2021-08-28 11:11] LABS: D Dimer 0.42 ug/mL (<0.48)
[2021-08-28] MEDS: POTASSIUM CHLORIDE 20 MEQ TABLET 40 MEQ PO (11:19)
[2021-08-28 11:50] LABS: Alveolar/Arterial O2 Gradient 632.9 mmHg; Base Excess ABG 3.6 mEq/l (+/-2.0); Carboxyhemoglobin 0.3 % THb (0-2.0); Fractional Inspired Oxygen 100 %; HCO3 ABG 25.6 mEq/l (22.0-26.0); Methemoglobin ABG 0.1 %THb (0-1.5); Oxygen Content ABG 12.8 %vol (16.0-22.0); Oxygen Saturation ABG 90.5 % (95.0-100.0); Oxyhemoglobin 86.1 % THb (90.0-100.0); PCO2 ABG 29.9 mmHg (35.0-45.0); PO2 ABG 50.2 mmHg (80.0-100.0); Reduced Hemoglobin 13.5 %THb (0-5.0); Total Hemoglobin 10.6 g/dL (12.0-18.0)
[2021-08-28 11:52] LABS: Device HIGH FLOW NASAL CANN; Modified Allen's Test Pass; Site Drawn RIGHT RADIAL; pH ABG 7.551 (7.350-7.450)
[2021-08-28 12:12] LABS: Lactate Dehydrogenase 614 U/L (313-618)
[2021-08-28 12:29] LABS: CRP 13.9 mg/dL (<1.0)
--- NOTE | 2021-08-28 12:48 | PC.NURSE ---
Was called into patient room by another nurse. Patient was anxious and experiencing SOB with decreased O2 saturation. Charge nurse and Veto TOSCANO was in patient room. Orders were received and patient was placed on 15L HF. Patient O2 saturation increased to above 90%. After monitoring patient her O2 saturations continued to fluctuate into the 80's. Patient did have complaints of mild SOB. Patient was then transferred to IMU.
[2021-08-28] MEDS: REMDESIVIR 200 MG/NS 250 ML 200 MG/250 ML BAG 250 MG IVPB (12:52)
[2021-08-28] MEDS: methylPREDNISolone SOD SUCC 125 MG VIAL 60 MG IV PUSH ×2 (14:40→18:33)
--- NOTE | 2021-08-28 16:15 | P.TS_ITS ---
Transfer Discharge Sum: Prov Provider Date of admission: 08/21/21 15:36 Primary care physician: Candida Gastelum, MD Admitting clinician: Alyssa Lopez MD Attending physician on admission: Alyssa Lopez Consults: 08/27/21 Consult to Physician Routine Comment: Consulting Provider: Scott Vallejo Reason for consultation: Worsening short of breath Has provider been notified: Yes Attending physician on discharge: Miriam Gonzales V. Discharging clinician: Dilan Mckenna Anticipated date of transfer: 08/28/21 Receiving physician/facility: Dr. Russell Kemp DS: Admitting Diagnosis Discharge Date 08/28/21 1800 Admitting Diagnosis Colitis DS: Discharge Diagnosis Discharge Diagnosis (1) Pneumonia: Qualifiers: Laterality: bilateral Lung location: lower lobe of lung Pneumonia type: due to unspecified organism Qualified Code(s): J18.9 - Pneumonia, unspecified organism Code(s): J18.9 - Pneumonia, unspecified organism Status: Acute Assessment and Plan: * CT of the chest/abd/pel shows: Extensive patchy bilateral interstitial infiltrates, worse since 08/22/2021, consistent with worsening bilateral pneumonia * Albuterol nebs * Supplemental oxygen- wean to maintain saturations greater than 94% * Sputum culture shows yeast and gram positive bacilli-which is listed as normal linda * Differentials HCAP vs PNA superimposed by colitis vs covid reinfection * covid PCR- pending * flu PCR-negative * Levaquin, Cefepime, and Vanc * Pulm consult thank you for your help * Changed prednisone to methylprednisone 60mg IV Q6hr * Start remdesivir and give actamera * Inflammatory marker labs ordered * Transfer to IMU for further management * Transfer to [facility] per family request. (2) Hypoxia: Code(s): R09.02 - Hypoxemia Status: Acute Assessment and Plan: * Chronic home O2 of 2LNC * Current increase of oxygen demand * Continuous Pulsox * ABG- pH 7.560, CO2 26.0, pO2 45.5, O2 sat 88.1 (08/27/21) * Repeat ABG * Will probably need a walk test prior to leaving * See above (3) Hypertension: Code(s): I10 - Essential (primary) hypertension Status: Acute Assessment and Plan: * BP stable, current BP was reported verbally low * Hold home medications (Decrease)amlodipine 5mg PO Daily, metoprolol 25mg PO Q12hr, at this time * Trend BP * Adjust medications as needed (4) Hyperlipidemia: Code(s): E78.5 - Hyperlipidemia, unspecified Status: Chronic Assessment and Plan: * Continue home pravastatin 40mg PO HS (5) Gastroesophageal reflux disease: Code(s): K21.9 - Gastro-esophageal reflux disease without esophagitis Status: Acute Assessment and Plan: * Takes omeprazole at home * Change to protonix while in the hospital (6) Emphysema/COPD: Code(s): J43.9 - Emphysema, unspecified Status: Acute Assessment and Plan: * Found on chest CT * Probably needs to be started on inhalers * Will try put patient on Anoro Ellipta and albuterol inhaler * Needs PFTs * Should follow up with Pulmonary at [place] * Consider chest CT if still really short of breath (7) Fluid overload: Code(s): E87.70 - Fluid overload, unspecified Status: Acute Assessment and Plan: * Ch
--- NOTE | 2021-08-28 16:15 | PM.TDS ---
Transfer Discharge Sum: Prov Provider Date of admission: 08/21/21 15:36 Primary care physician: Candida Gastelum, Admitting clinician: Alyssa Lopez MD Attending physician on admission: Alyssa Lopez Consults: 08/27/21 Consult to Physician Routine Comment: Consulting Provider: Scott Vallejo Reason for consultation: Worsening short of breath Has provider been notified: Yes Attending physician on discharge: Miriam Gonzales V. Discharging clinician: Dilan Mckenna Anticipated date of transfer: 08/28/21 [facility] DS: Admitting Diagnosis Discharge Date 08/28/21 1800 Admitting Diagnosis Colitis DS: Discharge Diagnosis Discharge Diagnosis (1) Pneumonia: Qualifiers: Laterality: bilateral Lung location: lower lobe of lung Pneumonia type: due to unspecified organism Qualified Code(s): J18.9 - Pneumonia, unspecified organism Code(s): J18.9 - Pneumonia, unspecified organism Status: Acute Assessment and Plan: CT of the chest/abd/pel shows: Extensive patchy bilateral interstitial infiltrates, worse since 08/22/2021, consistent with worsening bilateral pneumonia Albuterol nebs Supplemental oxygen- wean to maintain saturations greater than 94% Sputum culture shows yeast and gram positive bacilli-which is listed as normal linda Differentials HCAP vs PNA superimposed by colitis vs covid reinfection covid PCR- pending flu PCR-negative Levaquin, Cefepime, and Vanc Pulm consult thank you for your help Changed prednisone to methylprednisone 60mg IV Q6hr Start remdesivir and give actamera Inflammatory marker labs ordered Transfer to IMU for further management Transfer to [facility] per family request. (2) Hypoxia: Code(s): R09.02 - Hypoxemia Status: Acute Assessment and Plan: Chronic home O2 of 2LNC Current increase of oxygen demand Continuous Pulsox ABG- pH 7.560, CO2 26.0, pO2 45.5, O2 sat 88.1 (08/27/21) Repeat ABG Will probably need a walk test prior to leaving See above (3) Hypertension: Code(s): I10 - Essential (primary) hypertension Status: Acute Assessment and Plan: BP stable, current BP was reported verbally low Hold home medications (Decrease)amlodipine 5mg PO Daily, metoprolol 25mg PO Q12hr, at this time Trend BP Adjust medications as needed (4) Hyperlipidemia: Code(s): E78.5 - Hyperlipidemia, unspecified Status: Chronic Assessment and Plan: Continue home pravastatin 40mg PO HS (5) Gastroesophageal reflux disease: Code(s): K21.9 - Gastro-esophageal reflux disease without esophagitis Status: Acute Assessment and Plan: Takes omeprazole at home Change to protonix while in the hospital (6) Emphysema/COPD: Code(s): J43.9 - Emphysema, unspecified Status: Acute Assessment and Plan: Found on chest CT Probably needs to be started on inhalers Will try put patient on Anoro Ellipta and albuterol inhaler Needs PFTs Should follow up with Pulmonary at [place] Consider chest CT if still really short of breath (7) Fluid overload: Code(s): E87.70 - Fluid overload, unspecified Status: Acute Assessment and Plan: Chest xray Stable diffuse lung disease, consistent with pneumonia and/or pulmonary edema and/or acute respiratory distress syndrome (ARDS). BNP this am 433 Echo- EF 60-65% with grade 1 diastolic dysfunction 40mg IV lasix x1 Strict I&O Urinary catheter (8) Hypomagnesemia: Code(s): E83.42 - Hypomagnesemia Status: Acute Assessment and Plan: mg 1.8 Trend replace as needed (9) Hypokalemia: Code(s): E87.6 - Hypokalemia Status: Acute Assessment and Plan: K 3.4 40mcq once PO, since she is getting Lasix Trend Replace as needed (10) Adilson
[2021-08-29 19:59] LABS: SARS-CoV-2 RNA PCR Negative
== END 2021-08-28 19:00 | disposition short-term general hospital (02) | DRG 193 ==
LOC: ANHED 15:22 → ANH3MEDSUR 22:36 → ANHIMU 08-31 13:24
PROVIDERS: Emergency Medicine; Nurse Practitioner; Physician Assistant; Admitting Provider Internal Medicine; Emergency Provider Emergency Medicine; PCP Internal Medicine; Visit Provider Nurse Practitioner
DX: J18.9 Pneumonia, unspecified organism (principal); I50.31 Acute diastolic (congestive) heart failure; A09 Infectious gastroenteritis and colitis, unspecified; U09.9 Post COVID-19 condition, unspecified; Z20.822 Contact with and (suspected) exposure to COVID-19; R09.02 Hypoxemia; I11.0 Hypertensive heart disease with heart failure; E78.5 Hyperlipidemia, unspecified; K21.9 Gastro-esophageal reflux disease without esophagitis; J43.9 Emphysema, unspecified; E83.42 Hypomagnesemia; H35.30 Unspecified macular degeneration; E87.6 Hypokalemia; F41.8 Other specified anxiety disorders; K59.00 Constipation, unspecified; G47.33 Obstructive sleep apnea (adult) (pediatric); I25.10 Atherosclerotic heart disease of native coronary artery without angina pectoris; Z99.81 Dependence on supplemental oxygen; Z85.828 Personal history of other malignant neoplasm of skin; Z87.891 Personal history of nicotine dependence
CPT/HCPCS: 36415; 36600; 71045; 71250; 71260; 74018; 74177; 80053; 81001; 82375; 82565; 82728; 82805; 83050; 83605; 83615; 83690; 83735; 83880; 84460; 85025; 85380; 85610; 85730; 86140; 87015; 87040; 87045; 87070; 87205; 87269; 87272; 87324; 87427; 87804; 93306; 94640; 94667; 96374; 96375; 99285; A9270; C9803; J0131; J1170; J1650; J1940; J1956; J2060; J2270; J2405; J2930; J3370; J3475; J7030; J7512; Q0249; Q9967; U0003; U0005